=== PATIENT | male | born 1945 | race Hispanic/Latino ===

== ENCOUNTER 2017-09-09 21:50 | Emergency (ER) | payer MEDICARE, OTHER ==
[2017-09-09 23:16] LABS: BASOPHILS % (AUTO) 0.3 % (0.0-5.0); EOSINOPHILS % (AUTO) 1.1 % (0.0-8.0); HEMATOCRIT 36.8 % (42-54); LYMPHOCYTES % (AUTO) 17.6 % (21.0-51.0); MEAN CORPUSCULAR HEMOGLOBIN 33.2 pg (27.0-33.0); MEAN CORPUSCULAR HGB CONC 36.6 g/dL (32.0-36.0); MEAN CORPUSCULAR VOLUME 90.9 fL (79-99); NUCLEATED RED BLOOD CELLS 0.2 % (0.0-0.19); PLATELET COUNT (AUTO) 190 K/uL (130-400); RED BLOOD CELL COUNT(AUTO) 4.05 MIL/uL (4.50-6.20); RED CELL DISTRIBUTION WIDTH 12.9 % (11.0-15.5); WHITE BLOOD COUNT (AUTO) 6.5 K/uL (4.8-10.8)
[2017-09-09 23:26] LABS: CREATININE 1.3 mg/dL (0.5-1.5); POTASSIUM 4.2 mmol/L (3.5-5.1)
[2017-09-09 23:30] LABS: ALBUMIN 3.4 g/dL (3.5-5.0); BILIRUBIN,TOTAL 0.9 mg/dL (0.2-1.0)
[2017-09-10] MEDS ORDERED: CEFTRIAXONE SODIUM 1 GM ONE (00:10)
[2017-09-10] MEDS ORDERED: LIDOCAINE HCL-MPF 1% 2ML VIAL ONE (00:10)
[2017-09-10 00:46] LABS: ERYTHROCYTE SEDIMENTATION RATE 42 MM/HR (0-15)
== END 2017-09-10 01:37 | disposition home or self-care (01) ==
LOC: EDH 21:50
DX: M79.89 Other specified soft tissue disorders (principal); L53.9 Erythematous condition, unspecified; M79.671 Pain in right foot; E11.9 Type 2 diabetes mellitus without complications
CPT/HCPCS: 36415; 73630; 80053; 84550; 85025; 85651; 96372; 99285; J0696; J3490

== ENCOUNTER → 2020-11-16 | Outpatient (CLI) | payer OTHER | END | disposition home or self-care (01) | LOC: RAH 12:50 | PROVIDERS: ATTEND Internal Medicine | DX: N63.20 Unspecified lump in the left breast, unspecified quadrant (principal) | CPT/HCPCS: 76641 ==

== ENCOUNTER → 2022-08-10 | Outpatient (CLI) | payer OTHER | END | disposition home or self-care (01) | LOC: RAH 14:15 | PROVIDERS: ATTEND Internal Medicine | DX: G31.9 Degenerative disease of nervous system, unspecified (principal); I67.82 Cerebral ischemia; H49.01 Third [oculomotor] nerve palsy, right eye; H53.2 Diplopia; R51.9 Headache, unspecified; G23.8 Other specified degenerative diseases of basal ganglia | CPT/HCPCS: 70450 ==

== ENCOUNTER 2023-12-24 17:12 | Emergency (ER) | payer OTHER ==
[~2023-12-24] VITALS: Ht 177.8 cm; Wt 90.7 kg
[2023-12-24 17:59] LABS: ADD UA MICROSCOPIC YES; APPEARANCE,URINE TURBID (CLEAR); BILIRUBIN,URINE NEGATIVE (NEGATIVE); COLOR,URINE YELLOW (YELLOW); GLUCOSE, URINE (UA) 500 mg/dL (NEGATIVE); KETONES,URINE NEGATIVE (NEGATIVE); LEUKOCYTE ESTERASE ,URINE 500 Leu/uL (NEGATIVE); NITRATE,URINE 1+ (NEGATIVE); OCCULT BLOOD,URINE SMALL (NEGATIVE); PH,URINE 8.5 (5.0-8.0); PROTEIN,URINE 600 mg/dL (NEGATIVE); UROBILINOGEN,URINE 0.2 mg/dL (0.2-1.0)
[2023-12-24 18:02] LABS: BACTERIA,URINE MANY /HPF (None Seen); RBC,URINE 26-50 /HPF (0-1); WBC,URINE TNTC /HPF (0-1)
[2023-12-24] MEDS: cefTRIAXone 1G VIAL IM ONE (18:15)
[2023-12-24] MEDS ORDERED: CEPH500B PO (18:17)
[2023-12-24] MEDS: LIDOCAINE HCL 1% 20 ML VIAL ONE (18:37)
[2023-12-24 18:55] VITALS: BP 145/65; PULSE 87; RESP 16; TEMP 97.8; O2SAT 97
== END 2023-12-24 18:45 | disposition home or self-care (01) ==
LOC: EDH 17:12
DX: R33.9 Retention of urine, unspecified (principal); N39.0 Urinary tract infection, site not specified; Z46.6 Encounter for fitting and adjustment of urinary device; E11.9 Type 2 diabetes mellitus without complications; Z79.2 Long term (current) use of antibiotics; Z98.890 Other specified postprocedural states
CPT/HCPCS: 99284; 96372; 87086 ×2; 87186; 81001; 51702; J0696

== ENCOUNTER 2023-12-26 20:12 | Emergency (ER) | payer OTHER ==
[~2023-12-26] VITALS: Ht 177.8 cm; Wt 86.2 kg
[~2023-12-26 20:12] MED LIST: CEPH500B PO
[2023-12-26 21:48] VITALS: TEMP 98.3
[2023-12-26 23:03] VITALS: BP 138/79; PULSE 61; RESP 19; O2SAT 99
== END 2023-12-26 23:45 | disposition home or self-care (01) ==
LOC: EDH 20:12
DX: R33.9 Retention of urine, unspecified (principal); I10 Essential (primary) hypertension; E11.9 Type 2 diabetes mellitus without complications; Z98.890 Other specified postprocedural states; Z46.6 Encounter for fitting and adjustment of urinary device
CPT/HCPCS: 51702

== ENCOUNTER 2024-03-17 22:49 | Observation (INO) | payer OTHER ==
[~2024-03-17] VITALS: Ht 177.8 cm; Wt 86.8 kg
[2024-03-17 23:38] LABS: BASOPHILS # (AUTO) 0.03 K/uL (0.00-0.20); BASOPHILS % (AUTO) 0.4 % (0.0-5.0); EOSINOPHILS # (AUTO) 0.05 K/uL (0.00-0.70); EOSINOPHILS % (AUTO) 0.7 % (0.0-8.0); HEMATOCRIT 32.6 % (42-54); IMMATURE GRANULOCYTE ABSOLUTE 0.05 K/uL (0-1); LYMPHOCYTES # (AUTO) 2.1 K/uL (1.0-4.8); LYMPHOCYTES % (AUTO) 29.2 % (21.0-51.0); MEAN CORPUSCULAR HEMOGLOBIN 33.1 pg (27.0-33.0); MEAN CORPUSCULAR HGB CONC 35.6 g/dL (32.0-36.0); MEAN CORPUSCULAR VOLUME 93.1 fL (79-99); MONOCYTES # (AUTO) 0.6 K/uL (0.1-1.0); MONOCYTES % (AUTO) 7.8 % (3.0-13.0); NEUTROPHILS # (AUTO) 4.4 K/uL (1.8-7.7); NEUTROPHILS % (AUTO) 61.2 % (40.0-77.0); PLATELET COUNT (AUTO) 104 K/uL (130-400); RED CELL DISTRIBUTION WIDTH 14.3 % (11.0-15.5); WHITE BLOOD COUNT (AUTO) 7.2 K/uL (4.8-10.8)
[2024-03-17 23:56] LABS: CREATININE 1.3 mg/dL (0.5-1.3); POTASSIUM 3.4 mmol/L (3.5-5.1)
[2024-03-18] VITALS (8 sets, daily range): BP systolic 98–120; BP diastolic 57–69; PULSE 66–80; RESP 18–20; TEMP 97–97.9; O2SAT 93–98
[2024-03-18 00:09] LABS: B-TYPE NATRIURETIC PEPTIDE 23 pg/mL (0-100)
--- NOTE | 2024-03-18 00:28 | HMCIMG ---
CT HEAD/BRAIN W/O CONTRAST HISTORY: Dizziness COMPARISON: None TECHNIQUE: Multiple sequential axial images of the head were obtained from the base of the skull through vertex. Patient was not given contrast through intravenous route. FINDINGS: The ventricles and extraventricular CSF spaces are dilated consistent with cerebral atrophy. Nonspecific white matter changes seen. Post right craniotomy changes are seen. There is an arachnoid cyst with encephalomalacia changes in the right middle cranial fossa. There is no midline shift, mass effect or herniation. No acute intracranial bleed is seen. Visualized portion of the paranasal sinuses are grossly within normal limits. IMPRESSION: 1. No acute intracranial bleed is seen. 2. Atrophy with white matter changes. CT was performed with one or more following dose reduction techniques: automated exposure control, adjustment of the mA and kv according to patient's size, or use of a iterative reconstruction technique.
--- NOTE | 2024-03-18 01:52 | ERN ---
General Chief Complaint: Hyperglycemia Stated Complaint: HYPERGLYCEMIA, CHEST PRESSURE Time Seen by MD: 23:02 Time Seen by Midlevel: 23:02 Source: patient, family ( and daughter) History of Present Illness Initial Comments Patient is a 78-year-old male with a past medical history of type 2 diabetes and brain tumor who presents to the ER after an episode of hyperglycemia. According to daughter at bedside patient was at home when he developed some chest pressure and a feeling of generalized weakness. His sugar was checked and it was over 380. He was administered his insulin and they reported to the ER for further evaluation. On arrival, at bedside states patient has been having episodes where he was walking and becomes very weak to the point where he falls. This has been ongoing for the last month. They do report history of a brain tumor that was diagnosed earlier this year. A resection of the tumor was performed in [place] several months ago and patient was started on chemotherapy. Allergies: Coded Allergies: No Known Drug Allergies (Unverified Allergy, Unknown, 12/24/23) Home Meds Active Scripts Cephalexin Monohydrate (Keflex) 500 Mg Cap, 500 MG PO QID for 7 Days, #28 CAP Prov:ALOK JUÁREZ 12/24/23 Past Medical History Past Medical History: Diabetes-Type II Past Surgical History: Other Surgical History Other: TUMOR REMOVAL IN BRAIN ROS Dictation CONSTITUTIONAL: Negative except for HPI HEAD/FACE: Negative except for HPI EENT: Negative except for HPI RESPIRATORY: Negative except for HPI GASTROINTESTINAL/ABDOMINAL: Negative except for HPI GENITOURINARY: Negative except for HPI MUSCULOSKELETAL: Negative except for HPI INTEGUMENTARY: Negative except for HPI NEUROLOGICAL/PSYCH: Negative except for HPI HEMATOLOGIC/LYMPHATIC: Negative except for HPI All Systems Negative, Except as noted above. 13 point review of systems assessed and all negative except for above. Physical Exam Physical Exam Dictation Vital Signs reviewed General Appearance: Alert, oriented x 3, no acute distress, well developed, nourished. Head and Face: non-traumatic. Eyes: PERRL, pink conjunctivas, eyelid no trauma, anterior chamber with arcus senilis. Ears: Pinnas intact and no signs of trauma or erythema ear canals clear and no discharge TM no erythema Nose: No discharge, no bleeding. Oropharynx: Mouth normal, tongue pink, pharynx clear,no erythema, tonsils no exudates, no abscesses noted, mucous membrane moist Neck: Supple, non-tender, no thyromegaly, no masses, no JVD, no bruits Breast:Deferred Chest:No tenderness, no crepitus, no paradoxical movement, no retractions Lungs:Clear, well-ventilated, symmetric, no rales, no wheezing, no rhonchi, no stridor, good breath sounds bilaterally Heart: Regular rate, regular rhythm, no murmur, no gallops Vascular: no peripheral edema, Abdomen: Soft, positive bowel sounds, nondistended, no guarding, nontender, no rebound, no masses no hepatomegaly, no splenomegaly, no Edmonds's sign, no hernias. Rectal: Deferred Genital: Deferred Neurological: Normal speech, motor function intact, sensory function intact Musculoskeletal: Neck nontender, full range of motion, back nontender, full range of motion, Extremities: nontender, full range of motion Skin: Color pink, dry, no turgor, no rash, no lacerations, no abrasions, no contusions. Lymphatic: Deferred Results Laboratory and Microbiology Lab and Micro Result Laboratory Tests Test 03/17/24 23:30 White Blood Count 7.2 K/uL (4.8-10.8) Red Blood Count 3.50 MIL/uL (4.50-6.20) L Hemoglobin 11.6 g/dL (14.0-18.0) L Hematocrit 32.6 % (42-54) L Mean Corpuscular Volume 93.1 fL (79-99) Mean Corpuscular Hemoglobin 33.1 pg (27.0-33.0) H Mean Corpuscular Hemoglobin Concent 35.6 g/dL (32.0-36.0) Red Cell Distribution Width 14.3 % (11.0-15.5) Platelet Count 104 K/uL (130-400) L Mean Platelet Volume 9.8 fL (7.5-10.5) Immature Granulocyte % (Auto) 0.7 % (0-1) Neutrophils (%) (Auto) 61.2 % (40.0-77.0) Lymphocytes (%) (Auto) 29.2 % (21.0-51.0) Monocytes (%) (Auto) 7.8 % (3.0-13.0) Eosinophils (%) (Auto) 0.7 % (0.0-8.0) Basophils (%) (Auto) 0.4 % (0.0-5.0) Neutrophils # (Auto) 4.4 K/uL (1.8-7.7) Lymphocytes # (Auto) 2.1 K/uL (1.0-4.8) Monocytes # (Auto) 0.6 K/uL (0.1-1.0) Eosinophils # (Auto) 0.05 K/uL (0.00-0.70) Basophils # (Auto) 0.03 K/uL (0.00-0.20) Absolute Immature Granulocyte (auto 0.05 K/uL (0-1) Nucleated Red Blood Cells 0.0 % (0.0-0.19) Sodium Level 134 mmol/L (136-145) L Potassium Level 3.4 mmol/L (3.5-5.1) L Chloride Level 102 mmol/L (101-111) Carbon Dioxide Level 28 mmol/L (21-32) Blood Urea Nitrogen 33 mg/dL (7-18) H Creatinine 1.3 mg/dL (0.5-1.3) Glomerular Filtration Rate Calc 57 mL/min (>90) Random Glucose 93 mg/dL (70-105) Whole Blood Ketones Quantitative 0.1 mmol/L (0.0-0.6) Lactic Acid Level 2.2 mmol/L (0.8-2.5) Total Calcium 8.9 mg/dL (8.5-10.1) Total Creatine Kinase 13 U/L (21-232) #L Troponin I High Sensitivity 9 ng/L (4-75) B-Type Natriuretic Peptide 23 pg/mL (0-100) Labs Reviewed?: Yes MDM MDM: Differential diagnosis: Electrolyte abnormality, dehydration, intracranial bleed Rationale: Tests considered and ordered secondary to shared decision making include: Previous outside records reviewed: Old ER visits. Risk of complication and/or morbidity or mortality of patient management: None Medications-Per medication reconciliation Need for hospitalization: Patient does meet criteria for hospitalization. Need for emergency major/minor surgery: No There are no social concerns with this patient. Prescription drug management Prescriptions will include symptomatic care Patient's prior external medical records from other ER visits were reviewed by me as indicated. Prior testing and results from previous visits were reviewed. Prior tests were taken into account with medical decision making and resource utilization, independent historian/historians were used to obtain complete medical history. I independently interpreted the test that were performed, results were reviewed by me and considered findings on radiology if ordered. Medical management and examination interpretation discussions were had by me with other qualified healthcare professionals as indicated for the patient's care. ED Course Orders Procedure Category Date Status Time 12 Lead Ekg Tracing- EKG 03/17/24 Logged Technical 23:04 B-Type Natriuretic LAB 03/17/24 Complete Peptide 23:04 Basic Metabolic Panel LAB 03/17/24 Complete 23:04 Cbc With Differential LAB 03/17/24 Complete 23:04 Creatine Kinase, Total LAB 03/17/24 Complete 23:04 Lactic Acid LAB 03/17/24 Complete 23:04 Ketone Blood LAB 03/17/24 Complete Quantitative 23:04 Urinalysis Profile LAB 03/17/24 Logged 23:04 Troponin I High LAB 03/17/24 Complete Sensitivity 23:04 Chest 1vw RAD 03/17/24 Taken 23:04 Ct Head/Brain W/O CT 03/17/24 Resulted Contrast 23:28 Us Carotid Duplex US 03/18/24 Logged 02:17 D-Dimer LAB 03/18/24 In Process 02:17 Vital Signs Every 4 CPOE 03/18/24 Transmitted Hours 02:18 Activity: Bed Rest CPOE 03/18/24 Transmitted 02:18 Seizure Precautions CPOE 03/18/24 Transmitted 02:18 Nothing By Mouth DIET 03/18/24 Transmitted Breakfast O2 Order RT 03/18/24 Transmitted 02:18 Albuterol 0.083% PHA 03/18/24 In Process 2.5mg/3ml (Proventil 02:30 Cbc With Differential LAB 03/19/24 Verified 04:00 Basic Metabolic Panel LAB 03/19/24 Verified 04:00 Magnesium LAB 03/19/24 Verified 04:00 Phosphorus LAB 03/19/24 Verified 04:00 Acetaminophen 325 Tab PHA 03/18/24 In Process (Tylenol 325mg Tab 02:30 Acetaminophen 650mg PHA 03/18/24 In Process Supp (Tylenol 650mg 02:30 Lactulose 20 Gm/30 Ml PHA 03/18/24 In Process Udcup (Constulose 02:30 Ondansetron 4mg Inj PHA 03/18/24 In Process (Zofran 4mg Inj) 02:30 Clonidine Hcl 0.1 Mg PHA 03/18/24 In Process Tablet (Catapres 0. 02:30 Hydralazine 20mg Inj PHA 03/18/24 In Process (Apresoline 20mg In 02:30 Labetalol 20mg Syg PHA 03/18/24 In Process (Trandate 20mg Syg) 02:30 Apply Scds CPOE 03/18/24 Transmitted 02:18 Turn Patient Q2hrs CPOE 03/18/24 Transmitted 02:18 Elevate Hob At 30 CPOE 03/18/24 Transmitted Degrees 02:18 Admit Orders ADM 03/18/24 Transmitted 02:18 Condition: CPOE 03/18/24 Transmitted 02:18 Telemetry Monitoring CPOE 03/18/24 Transmitted 02:18 Initiate NIKKO 03/18/24 In Process Hyperglycemia Protoco 02:18 Thyroid Stimulating LAB 03/18/24 Logged Hormone 04:00 Lipid Panel LAB 03/18/24 Logged 04:00 Hemoglobin A1c LAB 03/18/24 Logged 04:00 Echo 2-D Complete ECHO 03/18/24 Logged 06:00 Pt And Ptt LAB 03/18/24 Logged 04:00 Pt Eval And Treat PT 03/18/24 Transmitted 02:18 Current Medications Medications (Trade) Dose Ordered Sig/Heidy Route PRN Reason Start Time Stop Time Status Last Admin Dose Admin Acetaminophen (TYLenol 325MG TAB) 650 mg Q6H PRN PO FEVER/MILD PAIN LEVEL 1-3 03/18/24 02:30 04/17/24 02:29 Acetaminophen (TYLenol 650MG SUPPOSITORY) 650 mg Q6H PRN RC FEVER / MILD PAIN 1-3 IF NPO 03/18/24 02:30 04/17/24 02:29 Albuterol Sulfate (Proventil 0.083% 2.5mg/3ml) 2.5 mg [id number] PRN IH SHORTNESS OF BREATH 03/18/24 02:30 04/17/24 02:29 Clonidine HCl (CATApres 0.1 mg TAB) 0.1 mg Q6H PRN PO IF SBP GREATER THAN 160 03/18/24 02:30 04/17/24 02:29 Hydralazine HCl (APRESOLine 20MG INJ) 10 mg Q6H PRN IV SBP GREATER THAN 160 03/18/24 02:30 04/17/24 02:29 Labetalol HCl (TRANdate 20MG SYG) 10 mg Q2H PRN IV SBP GREATER THAN 160 03/18/24 02:30 04/17/24 02:29 Lactulose (Constulose 20gm/ 30ml Udcup) 20 gm Q6H PRN PO CONSTIPATION 03/18/24 02:30 04/17/24 02:29 Ondansetron HCl (zoFRAN 4MG INJ) 4 mg Q6H PRN IVP NAUSEA/VOMITING 03/18/24 02:30 04/17/24 02:29 Vital Signs Date Time Temp Pulse Resp B/P (MAP) Pulse Ox O2 Delivery O2 Flow Rate FiO2 03/18/24 01:37 97.9 70 20 106/70 100 Room Air* 0 21 03/17/24 23:45 97.9 75 20 104/67 100 Room Air* 0 21 03/17/24 22:51 97.2 85 16 94/67 99 Room Air 0 DX & DISP Disposition: Inpatient Decision to Admit Date: Mar 18, 2024 Departure Impression: Primary Impression: History of brain tumor Additional Impressions: Frequent falls, Chronic anemia, Arachnoid cyst Condition: Stable Referrals: DAPHNE GREEN MD (PCP) I have reviewed the case, and I agree with, Diagnosis and Plan I performed the substantive portion of the visit. I have reviewed and personally made and approve the management plan that is documented in the note by myself or the NIDIA. I acknowledge for responsibility for the patient's management plan. ALOK JUÁREZ Mar 18, 2024 01:52
[2024-03-18] MEDS ORDERED: ALBUTEROL 0.083% 2.5 MG/3 ML INH IH PRN (02:30)
[2024-03-18] MEDS ORDERED: cloNIDine HCL 0.1 MG TABLET PO PRN (02:30)
[2024-03-18] MEDS ORDERED: LACTULOSE 20 GM/30 ML UDCUP PO PRN (02:30)
[2024-03-18] MEDS ORDERED: LAbetaLOL 20MG SYG IV PRN (02:30)
[2024-03-18] MEDS ORDERED: acetaMINOPHEN 650 MG SUPPOSITORY RC PRN (02:30)
[2024-03-18] MEDS ORDERED: hydrALAZine 20MG/ML VIAL IV PRN (02:30)
[2024-03-18] MEDS ORDERED: ondanSETRON 4MG INJ IVP PRN (02:30)
[2024-03-18] MEDS ORDERED: acetaMINOPHEN 325 MG TAB PO PRN (02:30)
--- NOTE | 2024-03-18 03:27 | NUR ---
NO HOME MEDS NOTED AT BEDSIDE, FAMILY MADE AWARE TO BRING IN FROM HOME
[2024-03-18 03:47] LABS: APPEARANCE,URINE CLEAR (CLEAR); BILIRUBIN,URINE NEGATIVE (NEGATIVE); COLOR,URINE LIGHT-YELLOW (YELLOW); GLUCOSE, URINE (UA) NEGATIVE (NEGATIVE); KETONES,URINE NEGATIVE (NEGATIVE); LEUKOCYTE ESTERASE ,URINE NEGATIVE Leu/uL (NEGATIVE); NITRATE,URINE NEGATIVE (NEGATIVE); OCCULT BLOOD,URINE NEGATIVE (NEGATIVE); PH,URINE 5.5 (5.0-8.0); PROTEIN,URINE NEGATIVE (NEGATIVE); UROBILINOGEN,URINE 0.2 mg/dL (0.2-1.0)
[2024-03-18 03:49] LABS: ADD UA MICROSCOPIC NO
--- NOTE | 2024-03-18 06:24 | NUR ---
RN GETTING CONSENT AND IV, WILL BRING DOWN WHEN READY
[2024-03-18 07:10] LABS: THYROID STIMULATING HORMONE 3.32 uIU/mL (0.36-3.74)
[2024-03-18 07:33] LABS: INR 1.17 (0.85-1.15); PROTHROMBIN TIME 12.5 SEC (9.6-11.6)
[2024-03-18 07:34] LABS: PARTIAL THROMBOPLASTIN TIME 25.4 SEC (26.3-35.5)
--- NOTE | 2024-03-18 07:38 | EKG ---
[facility] Test Date: 2024-03-17 Test Time: 23:28:02 Pat Name: RANDI CAMPBELL Department: [facility] Patient ID: [id number] Room: 304 1 Gender: M Call Out Operator: [id number] [phone] [id number] Requested By: ALOK JUÁREZ Order Number: [id number] Reading MD: Radha Gee Measurements Intervals Sidney Rate: 78 P: -13 CT: 170 QRS: -10 QRSD: 94 T: 61 QT: 384 QTc: 437 Interpretive Statements Sinus rhythm Inferior infarct, old No previous ECG available for comparison Electronically Signed On 03-18-2024 10:50:58 SOFTWARE QUALITY ENGINEER by Radha Gee Please click the below link to view image of tracing.
--- NOTE | 2024-03-18 08:42 | HMCIMG ---
US CAROTID DUPLEX REASON: dizziness, gait instability TECHNIQUE: Exam was performed using spectral analysis and color flow imaging. FINDINGS: Color flow Doppler ultrasound shows normal-appearing bifurcations. There is no anatomic evidence of significant focal narrowing. Flow velocities and velocity ratios appear normal throughout. There is antegrade flow in both vertebral arteries. RIGHT CAROTID: CCA: 65 cm/sec ICA: 72 cm/sec Ratio: ICA/CCA: 1.1 ECA: 42 cm/sec Vertebral artery: 44 cm/sec LEFT CAROTID: CCA: 69 cm/sec ICA: 53 cm/sec Ratio: ICA/CCA: 0.8 ECA: 44 cm/sec Vertebral artery: 40 cm/sec IMPRESSION: Normal bilateral carotid Doppler ultrasound.
--- NOTE | 2024-03-18 08:48 | NUR ---
DCP:HOME Sw met with pt's Deana Ren [phone]. states that for the last week, pt has required stand by assistance with his ADLS, ambulating with walker. reports "his leg give out on him while he is walking". Pt has walker with seat, no HH or HD services. PCP Ketty Quiroz and uses [facility] for rx. Pr , pt to go home at [facility], not SNF. Addendum: 03/18/24 at 0900 by STEVE GUADALUPE Amended: Links added.
--- NOTE | 2024-03-18 09:00 | NUR ---
HOME MEDICATIONS PATIENT'S HAD PILL BOX AT BEDSIDE WITH PATIENT'S HOME MEDICATIONS. PER UNAWARE OF NAMES, DOSAGES OR INDICATIONS ON MEDICATIONS AND STATED PILL BOXES AT HOME. PROVIDED WITH PATIENT'S PCP CONTACT INFO FOR FURTHER ASSISTANCE. CONTACTED [facility] FOR HOME MEDICATION LIST. SPOKE WITH NURSE, MAAME AND PROVIDED WITH FAX NUMBER FOR LIST TO BE FAXED. PENDING FAX.
[2024-03-18] MEDS ORDERED: IOHEXOL-350 75 ML VIAL IV ONE (09:33)
--- NOTE | 2024-03-18 10:45 | NUR ---
CT CHEST DR. GONSALEZ CALLED IN REGARDING RESULTS FOR CT CHEST (PE PROTOCOL). PER , RESULTS FOLLOWS Multiple bilateral pulmonary emboli in the right middle and lower lobes as well as the left lower lobe and Dilated right ventricle compared to the left consistent with a component of right heart strain. RESULTS REPORTED TO SCHUYLER MARTINEZ. PER MICHELLE PATIENT WILL BE STARTED ON ELIQUIS 10MG X 5 DAYS THEN ELIQUIS 5MG PO QD. ORDERS PLACED BY SCHUYLER MARTINEZ AND CARRIED OUT. NO FURTHER ORDERS GIVEN AT THIS TIME. WILL CONTINUE TO MONITOR.
--- NOTE | 2024-03-18 10:46 | HMCIMG ---
CT CHEST PE PROTOCOL O CONT REASON: P.E. TECHNIQUE: Thin axial images through the chest were obtained during bolus intravenous administration of 75 ml of Omnipaque 350. Sagittal and coronal reconstruction images were performed. FINDINGS: There are multiple bilateral pulmonary emboli more pronounced on the right. These are present in the right middle and lower lobe as well as the left lower lobe. The right ventricle appears dilated compared to the left consistent with a component of right heart strain. There are no focal masses or infiltrates. There are no pleural effusions. There is no evidence of pulmonary infarct. There is extensive coronary artery calcification. There is no hilar or mediastinal lymphadenopathy. Chest wall structures appear normal. There are stones in the gallbladder. There is mild splenomegaly, there may be some varices. IMPRESSION: 1. Multiple bilateral pulmonary emboli in the right middle and lower lobes as well as the left lower lobe. 2. Dilated right ventricle compared to the left consistent with a component of right heart strain. 3. Cholelithiasis. 4. Splenomegaly with probable varices. 5. These findings discussed with patient's care team at the time of dictation. CT was performed with one or more following dose reduction techniques: automated exposure control, adjustment of the mA and kv according to patient's size, or use of a iterative reconstruction technique.
[2024-03-18] MEDS: APIXaban 5 MG TABLET PO SCH (11:10)
--- NOTE | 2024-03-18 12:00 | NUR ---
Order received and spoke to Haja, patient's nurse. As per haja, CT scan + mutiple pulmonary emboli. PT eval on hold.
--- NOTE | 2024-03-18 12:03 | HMCIMG ---
CHEST 1VW REASON: SOB COMPARISON: None. FINDINGS: Single view of the chest was obtained. Lungs are clear. Heart size is normal. There is no pulmonary vascular congestion. Mediastinum and bony thorax appear unremarkable. IMPRESSION: 1. Normal single view chest x-ray.
--- NOTE | 2024-03-18 12:48 | HP ---
[facility] HISTORY & PHYSICAL Date Patient Seen: Mar 18, 2024 Time of Visit: 12:47 Supervising Physician: Dr. Amaro Primary Care Physician: Dr. Mariela Quiroz Outpatient Specialists: [ ] Inpatient Consults: [ ] PROBLEM LIST: Hyperglycemia the presence of poorly controlled diabetes homeless type 2 Multiple falls in the last month Gait instability History of brain tumor s/p resection and chemo at [place] Diabetes Mellitus HPI: Patient is a 78-year-old male with a past medical history significant for diabetes mellitus, and a history of brain tumor with resection and chemotherapy at [place]. Patient was admitted for episode of hyperglycemia with blood sugars at the 380 range as well as weakness with multiple falls over the past month. is at bedside, she states that his sugars have periodically been over the 500 range in the past. At the time of evaluation patient's blood sugars were 102 on the last check, well-controlled at this time. Regarding to syncope workup for his falls and stability, carotid ultrasound and head CT has been returned normal at this time. During the evaluation the results for CTA were returned positive for bilateral pulmonary embolism. Patient was started on therapeutic dose Eliquis which was later converted to therapeutic dose Lovenox at 87 mg subcutaneously every 12 hours. At the time of visit patient is still pending echocardiogram and chest x-ray, due to the disruption of the falls from the we are also ordering a brain MRI in order to rule out cerebellar stroke. Patient was resting comfortably at this time, laboratory studies appear unremarkable today. Patient's respiratory status is unchanged, currently on room air with no respiratory distress. We will continue to monitor this patient closely, prognosis remains guarded at this time. PAST MEDICAL HX: see above PAST SURGICAL HX: noncontributory SOCIAL HISTORY: No tobacco, ETOH, or illicit drug use Coded Allergies: No Known Drug Allergies (Unverified Allergy, Unknown, 12/24/23) REVIEW OF SYSTEMS: 12 point ROS reviewed with patient. Pertinent positives mentioned above. Otherwise negative. PHYSICAL EXAM: GENERAL: alert, weak, awake oriented x 3 HEENT: EOMI, Sclera non icteric, moist mucosa NECK: Supple, no JVD, trachea midline LUNGS: Clear breath sounds bilaterally. No wheezes HEART: Regular rate and rhythm. Normal S1 and S2, without murmurs ABD: Abdomen soft, nontender. Bowel sounds present EXT: No clubbing cyanosis or edema NEURO: Alert and oriented to person, follows commands Vital Signs (last 8hr) Date Time Temp Pulse Resp B/P (MAP) Pulse Ox O2 Delivery O2 Flow Rate FiO2 03/18/24 08:00 97.2 68 18 120/69 94 Room Air 21 03/18/24 04:50 67 18 N/A Room Air 0.0 21 LABS: Hematology Labs: Test 03/17/24 23:30 Range/Units White Blood Count 7.2 4.8-10.8 K/uL Red Blood Count 3.50 L 4.50-6.20 MIL/uL Hemoglobin 11.6 L 14.0-18.0 g/dL Hematocrit 32.6 L 42-54 % Mean Corpuscular Volume 93.1 79-99 fL Mean Corpuscular Hemoglobin 33.1 H 27.0-33.0 pg Mean Corpuscular Hemoglobin Concent 35.6 32.0-36.0 g/dL Red Cell Distribution Width 14.3 11.0-15.5 % Platelet Count 104 L 130-400 K/uL Mean Platelet Volume 9.8 7.5-10.5 fL Immature Granulocyte % (Auto) 0.7 0-1 % Neutrophils (%) (Auto) 61.2 40.0-77.0 % Lymphocytes (%) (Auto) 29.2 21.0-51.0 % Monocytes (%) (Auto) 7.8 3.0-13.0 % Eosinophils (%) (Auto) 0.7 0.0-8.0 % Basophils (%) (Auto) 0.4 0.0-5.0 % Neutrophils # (Auto) 4.4 1.8-7.7 K/uL Lymphocytes # (Auto) 2.1 1.0-4.8 K/uL Monocytes # (Auto) 0.6 0.1-1.0 K/uL Eosinophils # (Auto) 0.05 0.00-0.70 K/uL Basophils # (Auto) 0.03 0.00-0.20 K/uL Absolute Immature Granulocyte (auto 0.05 0-1 K/uL Nucleated Red Blood Cells 0.0 0.0-0.19 % Chemistry Labs: Test 03/18/24 11:19 03/18/24 06:38 03/17/24 23:30 Range/Units Whole Blood Glucose 104 70-110 MG/DL Hemoglobin A1c 6.0 4.0-6.0 % Estimated Average Glucose (eAG) 126 70-126 mg/dL Lactic Acid Level 1.8 0.8-2.5 mmol/L Triglycerides Level 60 30-200 mg/dL Cholesterol Level 61 <200 mg/dL LDL Cholesterol 29 0-99 mg/dL HDL Cholesterol 31 29-71 mg/dL Thyroid Stimulating Hormone (TSH) 3.32 0.36-3.74 uIU/mL Sodium Level 134 L 136-145 mmol/L Potassium Level 3.4 L 3.5-5.1 mmol/L Chloride Level 102 101-111 mmol/L Carbon Dioxide Level 28 21-32 mmol/L Blood Urea Nitrogen 33 H 7-18 mg/dL Creatinine 1.3 0.5-1.3 mg/dL Glomerular Filtration Rate Calc 57 >90 mL/min Random Glucose 93 70-105 mg/dL Whole Blood Ketones Quantitative 0.1 0.0-0.6 mmol/L Total Calcium 8.9 8.5-10.1 mg/dL Total Creatine Kinase 13 #L 21-232 U/L Troponin I High Sensitivity 9 4-75 ng/L B-Type Natriuretic Peptide 23 0-100 pg/mL Coagulation Labs: Test 03/18/24 06:38 03/17/24 23:30 Range/Units Prothrombin Time 12.5 H 9.6-11.6 SEC Prothromb Time International Ratio 1.17 H 0.85-1.15 Activated Partial Thromboplast Time 25.4 L 26.3-35.5 SEC D-Dimer Quantitative (PE/DVT) 2983 *H 0-500 ng/mL DIAGNOSTICS / RADIOLOGY RESULTS: [ ] PLAN NEURO: Minimize central acting medications as possible. Maintain fall precautions, adequate lighting during the day PULMONARY: Supplemental 02 as needed. Maintain aspiration precautions at all times CARDIOVASCULAR: Follow hemodynamics. Vital signs per facility protocol GI & NUTRITION: Continue with nutritional support. Continue stool softeners and laxatives as needed. KIDNEYS & ELECTROLYTES: Strict monitoring of intake, output and overall fluid balance. Avoid nephrotoxic medications to the extent possible. Medications to be dosed according to renal function. Monitor electrolytes and replace as needed ENDOCRINE: Maintain blood glucose between 100-180 at all times. Hypoglycemia protocol in place INFECTIOUS DISEASE: Trend temperature, WBC and procalcitonin level Follow cultures, deescalate antibiotics as soon as possible. Panculture if new onset fever ONCOLOGY/HEMATOLOGY/COAGULATION: Monitor for s/s of bleeding Monitor hemoglobin, coagulation studies as needed SKIN: Pressure ulcer prevention per facility protocol Specialty mattress ORTHO/REHAB: Continue PT/OT Prophylaxis: Continue GI and DVT prophylaxis Code Status: Full Resuscitation Disposition: TBD Other: Total patient care time exceeds 35 minutes excluding all procedures. MICHELEL SAENZ Mar 18, 2024 12:48
--- NOTE | 2024-03-18 14:01 | HMCIMG ---
MR BRAIN WWO CON REASON: R/O STROKE COMPARISON: CT brain 03/18/2024 TECHNIQUE: Routine cerebral imaging protocol was performed. Images are also obtained pre and post gadolinium contrast infusion. CONTRAST: 15 cc MultiHance 529 IV. FINDINGS: There are surgical changes in the right temporal lobe and right temporal calvarium. There is focal encephalomalacia. There is no evidence of residual mass and there is no mass effect. There is minimal enhancement along the resection margin consistent with granulation tissue There are periventricular white matter changes of small vessel disease which are mild in degree. Brain parenchyma appears otherwise unremarkable, there are no other focal parenchymal abnormalities. There is no other abnormal contrast enhancement. Ventricles and sulci appear generous consistent with moderate involutional change. Posterior fossa and brainstem structures appear unremarkable. There is no evidence of intracranial hemorrhage. Diffusion-weighted images are negative for an acute ischemic process. There are no abnormal fluid collections. Extracranial soft tissues appear normal as well. IMPRESSION: 1. Postop changes in the right temporal lobe. 2. No evidence of residual mass or abnormal contrast enhancement. 3. Moderate involutional changes with generous ventricles and sulci and with mild periventricular white matter changes.
[2024-03-18] MEDS ORDERED: GADOTERATE MEGLUMINE 10 MMOL/20 ML VIAL IV ONE (17:22)
--- NOTE | 2024-03-18 18:00 | HMCSR ---
APPROVED REPORT EXAM: Two-dimensional and M-mode echocardiogram with Doppler and color Doppler. INDICATION ICD: CHEST PRESSURE/R/O CVA 2D Dimensions RVDd3.1 cmLVEF(%)51.8 (>50%)LVED Vol(simp.)45.0 mL IVSd1.3 (0.7-1.1cm)FS(%)26 %LVES Vol(simp.)19.0 mL LVDd4.2 (3.8-5.6cm)LA (2D)3.8 (1.6-4.0cm)LVEF(%, simp.)58 % PWd0.8 (0.7-1.1cm)Ao Root(2D)3.4 (2.0-3.7cm)LA ESV INDEX (4CH)16.20 mL/m2 IVSs1.4 cmLVOT diam2.4 (1.8-2.4cm) LVDs3.1 (2.5-4.0cm) PWs1.1 cm Deformation Strain Apical 4-21.0 % Apical 2-18.0 % Apical 3-19.0 % Global Strain-19.0 % M-Mode Dimensions LA (MM)4.2 (1.6-4.0cm) Ao Root(MM)3.6 (2.0-3.7cm) Aortic Valve AoV VTI0.2 mAo Mean GR4.0 mmHgLVOT VTI0.16 m LUCILLE (VMAX)3.1 cm2AVA (VTI) 3.1 cm2 Mitral Valve MV E Vmax50.3 cm/sDECEL Xhct373 ms MV A Vmax76.0 cm/sP 1/2 T70 ms E/A ratio0.7MVA (PHT)3.1 cm2 TDI E/E' Fcvdgg53.2E/E' Lateral7.3 Medial E' Peak V3.10 cm/sLateral E' Peak V6.90 cm/s Pulmonary Valve PV VTI0.11 mPV Mean GR1 mmHg Left Ventricle The left ventricle is normal size. GLS -19%. Mild concentric left ventricular hypertrophy. LVEF is 60 -65%. The left ventricular diastolic function is indeterminate. Right Ventricle The right ventricle is normal size. The right ventricular systolic function is normal. Atria The left atrium size is normal. The right atrium size is normal. echogenic mobile mass seen right atr ium Aortic Valve The aortic valve is normal in structure. No aortic regurgitation is present. There is no aortic valvu lar stenosis. Mitral Valve The mitral valve is normal in structure. Mildly calcified posterior leaflet. Mitral valve leaflets op en well. There is no evidence of significant mitral regurgitation. There is no mitral valve stenosis. Tricuspid Valve The tricuspid valve is normal in structure. There is no tricuspid valve regurgitation noted. Pulmonic Valve The pulmonary valve is normal in structure. There is no pulmonic valvular regurgitation. Great Vessels The aortic root is normal in size. The IVC is normal in size and collapses >50% with inspiration. Pericardium There is no pericardial effusion. Other Information Quality : AdequateRhythm : NSR Conclusion LVEF is 60-65%. Mild concentric left ventricular hypertrophy. The left ventricular diastolic function is indeterminate. Mildly calcified posterior mitral valve leaflet.
[2024-03-18] MEDS: INSULIN humuLIN R 100 UNIT/ML 3ML SQ SCH (21:35)
[2024-03-19] VITALS (8 sets, daily range): BP systolic 93–111; BP diastolic 60–69; PULSE 71–79; RESP 17–20; TEMP 97.7–98.3; O2SAT 94–95
[2024-03-19 04:50] LABS: BASOPHILS # (AUTO) 0.01 K/uL (0.00-0.20); BASOPHILS % (AUTO) 0.2 % (0.0-5.0); EOSINOPHILS # (AUTO) 0.04 K/uL (0.00-0.70); EOSINOPHILS % (AUTO) 0.9 % (0.0-8.0); HEMATOCRIT 31.1 % (42-54); IMMATURE GRANULOCYTE ABSOLUTE 0.02 K/uL (0-1); LYMPHOCYTES # (AUTO) 1.3 K/uL (1.0-4.8); LYMPHOCYTES % (AUTO) 27.5 % (21.0-51.0); MEAN CORPUSCULAR HEMOGLOBIN 33.4 pg (27.0-33.0); MEAN CORPUSCULAR HGB CONC 35.7 g/dL (32.0-36.0); MEAN CORPUSCULAR VOLUME 93.7 fL (79-99); MONOCYTES # (AUTO) 0.4 K/uL (0.1-1.0); NEUTROPHILS # (AUTO) 2.9 K/uL (1.8-7.7); PLATELET COUNT (AUTO) 80 K/uL (130-400); RED BLOOD CELL COUNT(AUTO) 3.32 MIL/uL (4.50-6.20); WHITE BLOOD COUNT (AUTO) 4.6 K/uL (4.8-10.8)
[2024-03-19 04:59] LABS: POTASSIUM 3.7 mmol/L (3.5-5.1)
[2024-03-19 05:00] LABS: CREATININE 1.1 mg/dL (0.5-1.3); MAGNESIUM 1.4 mg/dL (1.80-2.40); PHOSPHORUS 2.9 mg/dL (2.5-4.9)
[2024-03-19] MEDS: MAGNESIUM 2GM PREMIX 50ML 50 ML IV PRN (05:17)
[2024-03-19] MEDS ORDERED: ENOXAPARIN SODIUM 100 MG/1 ML SQ SCH (09:00)
--- NOTE | 2024-03-19 13:56 | PN ---
[facility] PROGRESS NOTE Date Patient Seen: Mar 19, 2024 Time of Visit: 13:56 Supervising Physician: [Dr. Amaro] Primary Care Physician: Dr. Mariela Quiroz Outpatient Specialists: [ ] Inpatient Consults: [ ] PROBLEM LIST: Bilateral pulmonary embolus, CTA chest, POA Hyperglycemia the presence of poorly controlled diabetes mellitus type 2 Frequent falls with multiple falls reported in the last month Gait instability History of brain tumor s/p resection and chemo at [facility] Diabetes Mellitus INTERVAL HISTORY: [Patient was admitted for evaluation of chest pressure associated with general body weakness and hyperglycemic episode. Per ED report patient has a history of brain tumor as far s/p resection several months ago. He states he was diagnosed with brain cancer at that time. I spoke to the patient's son on the phone states the patient underwent 21 days of radiation and continue treatment with chemotherapy of which he took his last dose a week ago. Per son, patient is following up with Dr. Gomez and we will continue on a maintenance dose of chemotherapy. The son explained that the patient has been weak with a gait instability and has had multiple falls due to the same. His labs on admission revealed mildly elevated creatinine of 1.3, improved today to 1.1. Low magnesium, currently being replaced and thrombocytopenia. His CT of the head did not reveal any acute findings but did not note an arachnoid cyst. Carotid Doppler was normal. His CT of the chest revealed a bilateral pulmonary embolus with a dilated right ventricle concerning for right heart strain. A subsequent echocardiogram was performed which revealed an EF of 60-65% with otherwise norm al findings, no mentioned of right heart strain, elevated right ventricular pressure or pulmonary hypertension. I reached out to Dr. Gee who read the echocardiogram to confirm the findings. Denies any history of A-fib. MRI of the brain reveals post-op R-temporal lobe changes without evidence of residual mass. Patient continues on full-dose Lovenox for treatment of bilateral PE. We will order physical therapy to evaluate patient's ability to ambulate safely. We will consult case management for SNF eval if appropriate.] REVIEW OF SYSTEMS: 12 point ROS reviewed with patient. Pertinent positives mentioned above. Otherwise negative. PHYSICAL EXAM: GENERAL: alert, weak, awake oriented x 3 HEENT: EOMI, Sclera non icteric, moist mucosa NECK: Supple, no JVD, trachea midline LUNGS: Clear breath sounds bilaterally. No wheezes HEART: Regular rate and rhythm. Normal S1 and S2, without murmurs ABD: Abdomen soft, nontender. Bowel sounds present EXT: No clubbing cyanosis or edema NEURO: Alert and oriented to person, follows commands Vital Signs (last 8hr) Date Time Temp Pulse Resp B/P (MAP) Pulse Ox O2 Delivery O2 Flow Rate FiO2 03/19/24 12:00 98.2 79 18 111/69 96 Room Air 21 03/19/24 08:00 98.2 76 18 93/60 97 Room Air 21 03/19/24 07:07 77 18 N/A Room Air 0.0 21 LABS: Hematology Labs: Test 03/19/24 03:04 Range/Units White Blood Count 4.6 L 4.8-10.8 K/uL Red Blood Count 3.32 L 4.50-6.20 MIL/uL Hemoglobin 11.1 L 14.0-18.0 g/dL Hematocrit 31.1 L 42-54 % Mean Corpuscular Volume 93.7 79-99 fL Mean Corpuscular Hemoglobin 33.4 H 27.0-33.0 pg Mean Corpuscular Hemoglobin Concent 35.7 32.0-36.0 g/dL Red Cell Distribution Width 14.0 11.0-15.5 % Platelet Count 80 L 130-400 K/uL Mean Platelet Volume 10.4 7.5-10.5 fL Immature Granulocyte % (Auto) 0.4 0-1 % Neutrophils (%) (Auto) 63.0 40.0-77.0 % Lymphocytes (%) (Auto) 27.5 21.0-51.0 % Monocytes (%) (Auto) 8.0 3.0-13.0 % Eosinophils (%) (Auto) 0.9 0.0-8.0 % Basophils (%) (Auto) 0.2 0.0-5.0 % Neutrophils # (Auto) 2.9 1.8-7.7 K/uL Lymphocytes # (Auto) 1.3 1.0-4.8 K/uL Monocytes # (Auto) 0.4 0.1-1.0 K/uL Eosinophils # (Auto) 0.04 0.00-0.70 K/uL Basophils # (Auto) 0.01 0.00-0.20 K/uL Absolute Immature Granulocyte (auto 0.02 0-1 K/uL Nucleated Red Blood Cells 0.0 0.0-0.19 % Chemistry Labs: Test 03/19/24 11:48 03/19/24 03:04 03/18/24 06:38 03/17/24 23:30 Range/Units Whole Blood Glucose 262 #H 70-110 MG/DL Sodium Level 142 136-145 mmol/L Potassium Level 3.7 3.5-5.1 mmol/L Chloride Level 106 101-111 mmol/L Carbon Dioxide Level 29 21-32 mmol/L Blood Urea Nitrogen 20 H 7-18 mg/dL Creatinine 1.1 0.5-1.3 mg/dL Glomerular Filtration Rate Calc 70 >90 mL/min Random Glucose 155 H 70-105 mg/dL Total Calcium 8.6 8.5-10.1 mg/dL Phosphorus Level 2.9 2.5-4.9 mg/dL Magnesium Level 1.40 L 1.80-2.40 mg/dL Hemoglobin A1c 6.0 4.0-6.0 % Estimated Average Glucose (eAG) 126 70-126 mg/dL Lactic Acid Level 1.8 0.8-2.5 mmol/L Triglycerides Level 60 30-200 mg/dL Cholesterol Level 61 <200 mg/dL LDL Cholesterol 29 0-99 mg/dL HDL Cholesterol 31 29-71 mg/dL Thyroid Stimulating Hormone (TSH) 3.32 0.36-3.74 uIU/mL Whole Blood Ketones Quantitative 0.1 0.0-0.6 mmol/L Total Creatine Kinase 13 #L 21-232 U/L Troponin I High Sensitivity 9 4-75 ng/L B-Type Natriuretic Peptide 23 0-100 pg/mL Coagulation Labs: Test 03/18/24 06:38 03/17/24 23:30 Range/Units Prothrombin Time 12.5 H 9.6-11.6 SEC Prothromb Time International Ratio 1.17 H 0.85-1.15 Activated Partial Thromboplast Time 25.4 L 26.3-35.5 SEC D-Dimer Quantitative (PE/DVT) 2983 *H 0-500 ng/mL DIAGNOSTICS / RADIOLOGY RESULTS: [MR BRAIN WWO CON REASON: R/O STROKE COMPARISON: CT brain 03/18/2024 TECHNIQUE: Routine cerebral imaging protocol was performed. Images are also obtained pre and post gadolinium contrast infusion. CONTRAST: 15 cc MultiHance 529 IV. FINDINGS: There are surgical changes in the right temporal lobe and right temporal calvarium. There is focal encephalomalacia. There is no evidence of residual mass and there is no mass effect. There is minimal enhancement along the resection margin consistent with granulation tissue There are periventricular white matter changes of small vessel disease which are mild in degree. Brain parenchyma appears otherwise unremarkable, there are no other focal parenchymal abnormalities. There is no other abnormal contrast enhancement. Ventricles and sulci appear generous consistent with moderate involutional change. Posterior fossa and brainstem structures appear unremarkable. There is no evidence of intracranial hemorrhage. Diffusion-weighted images are negative for an acute ischemic process. There are no abnormal fluid collections. Extracranial soft tissues appear normal as well. IMPRESSION: 1. Postop changes in the right temporal lobe. 2. No evidence of residual mass or abnormal contrast enhancement. 3. Moderate involutional changes with generous ventricles and sulci and with mild periventricular white matter changes.] PLAN NEURO: Minimize central acting medications as possible. Maintain fall precautions, adequate lighting during the day PULMONARY: Supplemental 02 as needed. Maintain aspiration precautions at all times CARDIOVASCULAR: Follow hemodynamics. Vital signs per facility protocol GI & NUTRITION: Continue with nutritional support. Continue stool softeners and laxatives as needed. KIDNEYS & ELECTROLYTES: Strict monitoring of intake, output and overall fluid balance. Avoid nephrotoxic medications to the extent possible. Medications to be dosed according to renal function. Monitor electrolytes and replace as needed ENDOCRINE: Maintain blood glucose between 100-180 at all times. Hypoglycemia protocol in place INFECTIOUS DISEASE: Trend temperature, WBC and procalcitonin level Follow cultures, deescalate antibiotics as soon as possible. Panculture if new onset fever ONCOLOGY/HEMATOLOGY/COAGULATION: Monitor for s/s of bleeding Monitor hemoglobin, coagulation studies as needed SKIN: Pressure ulcer prevention per facility protocol Specialty mattress ORTHO/REHAB: Continue PT/OT Prophylaxis: Continue GI and DVT prophylaxis Code Status: Full Resuscitation Disposition: TBD Other: Total patient care time exceeds 35 minutes excluding all procedures. MEGGAN GALICIA Mar 19, 2024 13:56
--- NOTE | 2024-03-19 15:07 | NUR ---
DC PLAN VISITED WITH PATIENT. RECEIVED TRIGGER FOR SNF. OFFERED TO PATIENT. REFUSED SAID HE KNOWS THAT HE IS WEAK AND UNSTABLE BUT STILL WANTS TO GO HOME. CM LOOKED FOR PT NOTE DID NOT SEE NOTE ORDER FROM 03/18 CM WILL F/U WITH PT. AT THIS TIME PLAN IS FOR HOME. Addendum: 03/19/24 at 1509 by MUNA MILLER RN CM Amended: Links added.
--- NOTE | 2024-03-19 18:28 | NUR ---
DC PLAN SPOKE TO PT SAID PATIENT WAS ENDORSED. COULD USE SOME THERAPY AT HOME MAYBE HOME HEALTH BUT DID NOT SEE NEED FOR SNF. Addendum: 03/19/24 at 1834 by MUNA MILLER RN CM Amended: Links added.
[2024-03-19] MEDS: ENOXAPARIN SODIUM 100 MG/1 ML SQ SCH (20:17)
[2024-03-20 01:31] VITALS: BP 116/70; PULSE 76; RESP 18; TEMP 98.5
[2024-03-20 04:29] VITALS: BP 113/70; PULSE 70; RESP 18; TEMP 98.2
[2024-03-20 07:19] VITALS: PULSE 75; RESP 18; O2SAT 96
[2024-03-20 07:49] VITALS: BP 123/72; PULSE 77; RESP 19; TEMP 98
[2024-03-20 08:30] VITALS: O2SAT 96
[2024-03-20 11:44] VITALS: BP 114/65; PULSE 75; RESP 19; TEMP 98
--- NOTE | 2024-03-20 12:03 | NUR ---
SPOKE WITH DR HAMMER REGARDING NEW CONSULT, VERBALIZES UNDERSTANDING, STATES HE WILL BE BY TO SEE PATIENT.
[2024-03-20] MEDS ORDERED: APIX5TAB PO (14:02)
--- NOTE | 2024-03-20 14:03 | DS ---
[facility] DISCHARGE SUMMARY Date Patient Seen: Mar 20, 2024 Time of Visit: 14:02 Supervising Physician: [Dr. Amaro] Primary Care Physician: Dr. Mariela Quiroz Outpatient Specialists: [ ] Inpatient Consults: [ ] PROBLEM LIST: Glioblastoma multiforme, treated s/p radiation and chemo with temodar Bilateral pulmonary embolus, CTA chest, POA Hyperglycemia the presence of poorly controlled diabetes mellitus type 2 Frequent falls with multiple falls reported in the last month Gait instability History of brain tumor s/p resection and chemo at [place] Diabetes Mellitus HOSPITAL COURSE: HPI (per admitting provider) Patient is a 78-year-old male with a past medical history significant for diabetes mellitus, and a history of brain tumor with resection and chemotherapy at [place]. Patient was admitted for episode of hyperglycemia with blood sugars at the 380 range as well as weakness with multiple falls over the past month. is at bedside, she states that his sugars have periodically been over the 500 range in the past. At the time of evaluation patient's blood sugars were 102 on the last check, well-controlled at this time. Regarding to syncope workup for his falls and stability, carotid ultrasound and head CT has been returned normal at this time. During the evaluation the results for CTA were returned positive for bilateral pulmonary embolism. He was initiated on full dosed lovenox and converted to eliquis upon discharge. Patient's respiratory status is unchanged, on room air with no respiratory distress. Labs including CBC and BMP were unremarkable. Given his weakness and multiple falls patient was recommended for SNF to continue physical therapy but declined and preferred to go home. CHRONIC PROBLEMS: continue previous management per PCP unless otherwise indicated GRAPHIC DESIGN PROFESSOR FINDINGS/RECOMMENDATIONS: [ He needs to follow up with Dr. Gomez next week because he needs to be on oral Temodar 5 days a month for a year. I told him to come see me within 1 week at discharge.] DISCHARGE MEDICATIONS: Continue all previous medications. Start eliquis 10mg BID X 7 days then continue Eliquis 5mg BID thereafter. Pt hemodynamically stable and afebrile at time of discharge. PCP notified of patients admission, hospital course and discharge. New Medications: Apixaban (Eliquis) 5 Mg Tablet 1 TAB PO BID for 30 Days, #60 TAB 0 Refills Apixaban (Eliquis) 5 Mg Tablet 10 MG PO BID for 7 Days, #14 TAB PHYSICAL EXAM: GENERAL: alert, weak, awake oriented x 3 HEENT: EOMI, Sclera non icteric, moist mucosa NECK: Supple, no JVD, trachea midline LUNGS: Clear breath sounds bilaterally. No wheezes HEART: Regular rate and rhythm. Normal S1 and S2, without murmurs ABD: Abdomen soft, nontender. Bowel sounds present EXT: No clubbing cyanosis or edema NEURO: Alert and oriented to person, follows commands FOLLOW-UP: F/U with PCP in 2-3 days for reevaluation. Continue eliquis 10 mg BID x 7 days then transition to 5mg daily thereafter. F/U with Dr. Gomez outpatient for continued management of glioblastoma. Patient was recommended to SNF but declined. F/U with PCP to establish home health with physical therapy. RECOMMENDATIONS: See Discharge Instructions This case was seen and discussed with my supervising physician. More than 30 minutes spent on discharge process, including evaluation of the patient, discu ssion with nursing staff, medication reconciliation and follow-up appointments MEGGAN GALICIA Mar 20, 2024 14:03
--- NOTE | 2024-03-20 15:15 | NUR ---
PATIENT HAS BEEN DISCHARGED HOME. BOTH PIVS HAVE BEEN REMOVED. PRESSURE GAUZE AND TAPE APPLIED TO BOTH SITES. PATIENT AND VERBALIZE UNDERSTANDING OF DISCHARGE PAPERWORK. NEW PRESCRIPTIONS HAVE BEEN SENT TO PATIENT'S PREFERRED PHARMACY. TELE MONITOR HAS BEEN REMOVED. PATIENT WHEELED DOWN TO PRIVATE AUTOMOBILE ACCOMPANIED BY .
--- NOTE | 2024-03-20 22:33 | CONS ---
LOCATION: [facility] REFERRING PHYSICIAN: Camilo. REASON FOR CONSULTATION: Glioblastoma multiforme. HISTORY OF PRESENT ILLNESS: This is a 78-year-old man, diabetes, glioblastoma multiforme, who we actually in [place] are treating with multi-radiation, oral chemotherapy with Temodar, finished 12 treatments, about 2 weeks ago was scheduled for repeat MRI and did not come back. He came in here with hyperglycemia, sugars in 380, multiple falls. He was worked up. He has CTA of the chest showed pulmonary embolism. MRI of the brain showed no activity of the brain cancer and we were asked to evaluate this problem. He is back to his normal right now. He recognizes me. He has no complaints. He just wants to go home. PAST MEDICAL HISTORY: Diabetes mellitus, glioblastoma. PAST SURGICAL HISTORY: He has had a craniotomy, radiation, chemo, otherwise per my old records. MEDICATIONS: See intake sheet. ALLERGIES: None known. FAMILY HISTORY: Negative for brain cancer. SOCIAL HISTORY: He is a retired . Does live with his . Does not smoke or drink. REVIEW OF SYSTEMS: CONSTITUTIONAL: Negative for fevers or sweats. HEENT: Negative for blurred vision. CARDIOVASCULAR: Negative for chest pain, palpitation, PND. PULMONARY: Cough. GASTROINTESTINAL: Negative. Bowel sounds present. GENITOURINARY: Negative for hematuria or dysuria. PHYSICAL EXAMINATION: GENERAL: Shows a pleasant man. VITAL SIGNS: Blood pressure 123/72, pulse 77, respirations 19. HEENT: Benign. NECK: Supple. CHEST: Clear. ABDOMEN: Soft. NEUROLOGIC: He is alert and oriented, sitting in the chair. He is feeding himself. He has no focal findings. LABORATORY DATA: MRI of the brain showed postoperative change. CT chest showed multiple pulmonary emboli, glioblastoma palliative chemoradiotherapy, diabetes, noncompliance. PLAN: We will discontinue the Lovenox, switch to Eliquis 10 mg b.i.d. for 5 days and 5 b.i.d. for 6 months. Obviously, we need to get his sugar under control. He needs to follow up with us next week because he needs to be on oral Temodar 5 days a month for a year. I told him to come see me within 1 week at discharge. Thank you for the consult. TID: [id number] RECEIPT: [id number]
== END 2024-03-20 15:25 | disposition home or self-care (01) ==
LOC: EDH 22:49 → EDHIP 03-18 02:18 → 3AH 03-18 03:38
PROVIDERS: ADMIT Internal Medicine Critical Care Medicine; ATTEND Internal Medicine Critical Care Medicine
DX: E11.65 Type 2 diabetes mellitus with hyperglycemia (principal); D64.9 Anemia, unspecified; D69.6 Thrombocytopenia, unspecified; C71.9 Malignant neoplasm of brain, unspecified; I26.99 Other pulmonary embolism without acute cor pulmonale; I51.7 Cardiomegaly; R07.89 Other chest pain; R26.89 Other abnormalities of gait and mobility; R53.1 Weakness; R55 Syncope and collapse; R79.89 Other specified abnormal findings of blood chemistry; D49.6 Neoplasm of unspecified behavior of brain
CPT/HCPCS: 99285; 82550; 84484; 80048 ×2; 83880; 85025 ×2; 83605 ×2; 82010; 71045; 70450; 93005; 83036; 84443; 80061; 85378; 85610; 85730; 82948 ×10; 81003; 36415 ×4; 71270; 93306; 93356; 93880; 70553; 96372; 96374; 83735 ×2; 84100; 97161; 97116 ×2; 97530 ×3; J1815; G0378 ×58; A4600; Q9967; A9575; J3475; J1650

== ENCOUNTER 2024-05-25 13:11 | Emergency (ER) | payer OTHER ==
[~2024-05-25] VITALS: Ht 177.8 cm; Wt 83.0 kg
[~2024-05-25 13:11] MED LIST changes: +APIX5TAB PO; +BUSP5TAB3 PO; -CEPH500B PO; +DEXA0.5T2 PO; +DUTA0.5C37 PO; +FAMO20TA8 PO; +FERS325 PO; +INSU300I SQ; +LEVE500T98 PO; +METF-446 PO; +PRAV40TA3 PO
--- NOTE | 2024-05-25 13:35 | ERN ---
General Stated Complaint: MECHANICAL FALL,MULTIPLE COMPLAINTS Time Seen by MD: 13:12 Source: patient History of Present Illness Initial Comments IN HIS IS A 79-YEAR-OLD GENTLEMAN COMING IN TO BE EVALUATED FOR DEHYDRATION. PER FAMILY MEMBER AND PATIENT HE WAS RECEIVING CHEMOTHERAPY AND FREQUENTLY GETS DEHYDRATED. THEY WERE NOT ABLE TO HYDRATE HIM WITH IV FLUIDS ISSUES WITH THE FINDING AN IV SITE. PATIENT WAS SENT IN BY PCP FOR IV HYDRATION. Allergies: Coded Allergies: No Known Drug Allergies (Unverified Allergy, Unknown, 12/24/23) Home Meds Active Scripts Apixaban (Eliquis) 5 Mg Tablet, 1 TAB PO BID for 30 Days, #60 TAB 0 Refills Prov:MEGGAN GALICIA 03/20/24 Reported Medications Insulin Glargine,Hum.rec.anlog (Arian Solesther) 300 Unit/Ml (1.5 Ml) Insuln.pen, 40 UNIT SQ HS, SYRINGE 05/07/24 Dutasteride (Dutasteride) 0.5 Mg Capsule, 0.5 MG PO DAILY, CAP 05/07/24 Dexamethasone (Dexamethasone) 0.5 Mg Tablet, 4 MG PO DAILY, TAB 05/07/24 Famotidine (Famotidine) 20 Mg Tablet, 20 MG PO HS for 90 Days, TAB 05/07/24 Levetiracetam (Levetiracetam) 500 Mg Tab.er.24h, 500 MG PO BID, TAB 05/07/24 Pravastatin Sodium (Pravastatin Sodium) 40 Mg Tablet, 40 MG PO DAILY, TAB 05/07/24 Ferrous Sulfate (Ferrous Sulfate) 325 Mg (65 Mg Iron) Ectab, 325 MG PO DAILY, TAB.EC 05/07/24 Buspirone HCl (Buspirone HCl) 5 Mg Tablet, 5 MG PO BID, TAB 05/07/24 Metformin HCl (Metformin HCl) 1,000 Mg Tablet, 1000 MG PO BID, TAB 05/07/24 Past Medical History Past Medical History: Cancer, Diabetes-Type II, Hypertension Medical History Other: HX OF BRAIN CA Past Surgical History: Other Surgical History Other: TUMOR REMOVAL IN BRAIN Family History Family History: Negative Social History Social History: Negative ROS Dictation CONSTITUTIONAL: NO CHILLS, NO FEVER, WEAKNESS, NO DIAPHORESIS, NO MALAISE. HEAD/FACE: NO SIGNS OF TRAUMA. EENT: NO EYE PAIN, NO BLURRED VISION, NO TEARING, NO DOUBLE VISION, NO EAR PAIN, NO EAR DISCHARGE, NO NOSE PAIN, NO NASAL CONGESTION, NO THROAT PAIN, NO THROAT SWELLING, NO MOUTH PAIN. RESPIRATORY: NO COUGH, NO ORTHOPNEA, NO SOB, NO STRIDOR, NO WHEEZING. CARDIOVASCULAR: NO CHEST PAIN, NO EDEMA, NO PALPITATIONS, NO SYNCOPE. GASTROINTESTINAL/ABDOMINAL: NO ABDOMINAL PAIN, NO CONSTIPATION, NO DIARRHEA, NO NAUSEA, NO VOMITING. GENITOURINARY: NO ABNORMAL DISCHARGE, NO DYSURIA, NO FREQUENT URINATION, NO HEMATURIA. NO COMPLAINTS OF PAIN IN THE GENITALS. MUSCULOSKELETAL: NO BACK PAIN, NO GOUT, NO JOINT PAIN, NO JOINT SWELLING, NO MUSCLE PAIN, NO MUSCLE STIFFNESS, NO NECK PAIN. INTEGUMENTARY: NO CHANGE IN COLOR, NO CHANGE IN HAIR/NAILS, NO DRYNESS, NO LESION, NO LUMPS, NO RASH. NEUROLOGICAL/PSYCH: NO ANXIETY, NOT DEPRESSED, NO EMOTIONAL PROBLEM, NO HEADACHE, NO NUMBNESS, NO PRE-EXISTING DEFICIT, NO HISTORY OF SEIZURES, NO TREMORS, NO WEAKNESS. HEMATOLOGIC/LYMPHATIC: NOT ANEMIC, NO HISTORY OF BLOOD CLOTS, NO APPARENT BLEEDING, NO BRUISING, GLANDS NOT SWOLLEN. ALL SYSTEMS NEGATIVE, EXCEPT NOTED. Physical Exam Physical Exam Dictation VITAL SIGNS: REVIEWED. GENERAL APPEARANCE: ALERT, ORIENTED X3, NO ACUTE DISTRESS, OBESE. HEAD AND FACE: NON-TRAUMATIC. EYES: PERRL, PINK CONJUNCTIVAS, EYELID NO TRAUMA, ANTERIOR CHAMBER CLEAR. EARS: PINNAS INTACT AND NO SIGNS OF TRAUMA OR ERYTHEMA. EAR CANALS CLEAR AND NO DISCHARGE. TMS NO ERYTHEMA. NOSE: NO DISCHARGE, NO BLEEDING. OROPHARYNX: MOUTH NORMAL, TEETH NO CARIES, TONGUE PINK. PHARYNX CLEAR, NO ERYTHEMA. TONSILS NO EXUDATES, NO ABSCESSES NOTED. MUCOUS MEMBRANE MOIST. NECK: SUPPLE, NON-TENDER, NO THYROMEGALY, NO MASSES, NO JVD, NO BRUITS. BREAST: DEFERRED. CHEST: NO TENDERNESS, NO CREPITUS, NO PARADOXICAL MOVEMENT, NO RETRACTIONS. LUNGS: CLEAR, WELL-VENTILATED, SYMMETRIC, NO RALES, NO WHEEZING, NO RHONCHI, NO STRIDOR, GOOD BREATH SOUNDS BILATERALLY. HEART: REGULAR RATE, REGULAR RHYTHM, NO MURMUR, NO GALLOPS. VASCULAR: NO PERIPHERAL EDEMA. ABDOMEN: SOFT, POSITIVE BOWEL SOUNDS, NONDISTENDED, NO GUARDING, NONTENDER, NO REBOUND, NO MASSES NO HEPATOMEGALY, NO SPLENOMEGALY, NO DOSHI'S SIGN, NO HERNIAS. RECTAL: DEFERRED. GENITAL: DEFERRED. NEUROLOGICAL: NORMAL SPEECH, GROSS MOTOR FUNCTION INTACT, GROSS SENSORY FUNCTION INTACT. MUSCULOSKELETAL: NECK NONTENDER, FULL RANGE OF MOTION, BACK NONTENDER, FULL RANGE OF MOTION. EXTREMITIES: NONTENDER, FULL RANGE OF MOTION. SKIN: COLOR PINK, DRY, NO TURGOR, NO RASH, NO LACERATIONS, NO ABRASIONS, NO CONTUSIONS. LYMPHATICS: DEFERRED. Results Laboratory and Microbiology Lab and Micro Result Laboratory Tests Test 05/25/24 13:44 White Blood Count 5.5 K/uL (4.8-10.8) Red Blood Count 3.59 MIL/uL (4.50-6.20) L Hemoglobin 11.8 g/dL (14.0-18.0) L Hematocrit 33.9 % (42-54) L Mean Corpuscular Volume 94.4 fL (79-99) Mean Corpuscular Hemoglobin 32.9 pg (27.0-33.0) Mean Corpuscular Hemoglobin Concent 34.8 g/dL (32.0-36.0) Red Cell Distribution Width 15.0 % (11.0-15.5) Platelet Count 153 K/uL (130-400) Mean Platelet Volume 9.9 fL (7.5-10.5) Immature Granulocyte % (Auto) 0.6 % (0-1) Neutrophils (%) (Auto) 88.7 % (40.0-77.0) H Lymphocytes (%) (Auto) 7.7 % (21.0-51.0) L Monocytes (%) (Auto) 2.6 % (3.0-13.0) L Eosinophils (%) (Auto) 0.2 % (0.0-8.0) Basophils (%) (Auto) 0.2 % (0.0-5.0) Neutrophils # (Auto) 4.8 K/uL (1.8-7.7) Lymphocytes # (Auto) 0.4 K/uL (1.0-4.8) L Monocytes # (Auto) 0.1 K/uL (0.1-1.0) Eosinophils # (Auto) 0.01 K/uL (0.00-0.70) Basophils # (Auto) 0.01 K/uL (0.00-0.20) Absolute Immature Granulocyte (auto 0.03 K/uL (0-1) Nucleated Red Blood Cells 0.0 % (0.0-0.19) White Cell Morphology Comment See comments Sodium Level 140 mmol/L (136-145) Potassium Level 3.7 mmol/L (3.5-5.1) Chloride Level 104 mmol/L (101-111) Carbon Dioxide Level 27 mmol/L (21-32) Blood Urea Nitrogen 24 mg/dL (7-18) H Creatinine 1.3 mg/dL (0.5-1.3) Glomerular Filtration Rate Calc 57 mL/min (>90) Random Glucose 350 mg/dL (70-105) H Total Calcium 8.9 mg/dL (8.5-10.1) Labs Reviewed?: Yes EKG/XRAY/US/CT/MRI CT Scan Comment [address] [address] IMAGING REPORT Signed PATIENT: RANDI CAMPBELL MR#: [id number] : 1945 SEX: M AGE: 79 LOCATION: [facility] ORDER [id number] STATUS: REG ER REPORT#: [id number] SERVICE 1325 REASON: FALL ORDERING PHYSICIAN: JETHRO SALAMANCA MD PROCEDURE: HEAD WO - CT HEAD/BRAIN W/O CONTRAST Exam Type: CT HEAD/BRAIN W/O CONTRAST Clinical Information: FALL Comparison: None CT Dose Index (CTDI): 57.33 mGy Dose Length Product (DLP): 956.79 total mGy-cm Findings: The examination shows atrophy. There is low attenuation throughout the periventricular white matter locations, consistent with chronic small vessel ischemic changes. 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 No acute intra- or extra-axial fluid collections are seen. There is no evidence of acute or chronic hemorrhage. There is no mass effect or shift of midline structures. The skull windows show no significant abnormalities. IMPRESSION: 1. ATROPHY AND CHRONIC CHANGES. This study was performed using dose reduction techniques to include automated exposure control and/or adjustment of the mA and/or kV according to patient size. DICTATED BY: DAISY MANZANO MD DATE: 05/25/241428 ELECTRONICALLY SIGNED BY: DAISY MANZANO MD DATE: 05/25/24 1433 [facility] MDM: DIFFERENTIAL DIAGNOSIS: ON CHEMOTHERAPY, DEHYDRATION, GENERALIZED BODY WEAKNESS, PATIENT IS A 79-YEAR-OLD GENTLEMAN ON CHEMOTHERAPY FREQUENTLY PRESENTS WITH DEHYDRATION. PATIENT DOES NOT DRINK WATER INDICATED BY PCP PER FAMILY MEMBER. PATIENT WAS TO GET IV HYDRATED AT [facility] BUT MORE ABLE TO FIND IV SITE. PATIENT WAS SENT IN FOR FURTHER EVALUATION AND IV HYDRATION. ED Course Orders Procedure Category Date Status Time Cbc With Differential LAB 05/25/24 Complete 13:25 Basic Metabolic Panel LAB 05/25/24 Complete 13:25 Ct Head/Brain W/O CT 05/25/24 Resulted Contrast 13:25 0.9%Nacl 1000ml (Ns PHA 05/25/24 Complete 1000ml) 13:30 Current Medications Medications (Trade) Dose Ordered Sig/Heidy Route PRN Reason Start Time Stop Time Status Last Admin Dose Admin Sodium Chloride 1,000 ml @ 0 mls/hr ONCE ONCE IV 05/25/24 13:30 05/25/24 13:31 DC 05/25/24 16:30 Vital Signs Date Time Temp Pulse Resp B/P (MAP) Pulse Ox O2 Delivery O2 Flow Rate FiO2 05/25/24 16:08 97.5 77 14 122/74 96 Room Air* 0 21 05/25/24 13:47 97.5 86 16 91/60 97 Room Air 0 DX & DISP Disposition: Discharge Departure Impression: Primary Impression: Dehydration Additional Impression: Maintenance chemotherapy Condition: Stable Additional Instructions: FOLLOW-UP WITH PRIMARY CARE PROVIDER IN 1 TO 2 DAYS. TAKE MEDICATIONS DI RECTED HERE IN THE EMERGENCY ROOM. OKAY TO CONTINUE HOME MEDICATIONS UNLESS OTHERWISE DISCUSSED DURING YOUR VISIT IN THE EMERGENCY ROOM TODAY. RETURN TO YOUR NEAREST EMERGENCY ROOM IF SYMPTOMS WORSEN OR IF THERE IS NO IMPROVEMENT. CALL 911 IF YOU NEED IMMEDIATE ASSISTANCE. TAKE TYLENOL [id number] NEEDED AND IF NO CONTRAINDICATIONS ARE PRESENT. INCREASE ORAL HYDRATION. A WOUND CULTURE OR URINE CULTURE WAS ORDERED HERE IN THE EMERGENCY ROOM DEPARTMENT PLEASE FOLLOW-UP WITH PRIMARY CARE PROVIDER AND ADVISE THEM TO GET REPEAT PORTS FROM OUR FACILITY. IF YOU HAD ANY MANDY WRAP/SPLINTS THAT WERE APPLIED HERE, PLEASE DO NOT REMOVE THEM UNTIL YOU SEE YOUR PRIMARY CARE OR SPECIALTY. Referrals: Referrals: DAPHNE GREEN MD (PCP) Time of Disposition: 16:56 JETHRO SALAMANCA MD May 25, 2024 13:35
[2024-05-25 13:55] LABS: BASOPHILS # (AUTO) 0.01 K/uL (0.00-0.20); BASOPHILS % (AUTO) 0.2 % (0.0-5.0); EOSINOPHILS # (AUTO) 0.01 K/uL (0.00-0.70); EOSINOPHILS % (AUTO) 0.2 % (0.0-8.0); HEMATOCRIT 33.9 % (42-54); IMMATURE GRANULOCYTE ABSOLUTE 0.03 K/uL (0-1); LYMPHOCYTES # (AUTO) 0.4 K/uL (1.0-4.8); LYMPHOCYTES % (AUTO) 7.7 % (21.0-51.0); MEAN CORPUSCULAR HEMOGLOBIN 32.9 pg (27.0-33.0); MEAN CORPUSCULAR HGB CONC 34.8 g/dL (32.0-36.0); MEAN CORPUSCULAR VOLUME 94.4 fL (79-99); MONOCYTES # (AUTO) 0.1 K/uL (0.1-1.0); MONOCYTES % (AUTO) 2.6 % (3.0-13.0); NEUTROPHILS # (AUTO) 4.8 K/uL (1.8-7.7); NEUTROPHILS % (AUTO) 88.7 % (40.0-77.0); PLATELET COUNT (AUTO) 153 K/uL (130-400); RED BLOOD CELL COUNT(AUTO) 3.59 MIL/uL (4.50-6.20); WHITE BLOOD COUNT (AUTO) 5.5 K/uL (4.8-10.8)
[2024-05-25 14:07] LABS: CREATININE 1.3 mg/dL (0.5-1.3); POTASSIUM 3.7 mmol/L (3.5-5.1)
--- NOTE | 2024-05-25 14:33 | HMCIMG ---
Exam Type: CT HEAD/BRAIN W/O CONTRAST Clinical Information: FALL Comparison: None CT Dose Index (CTDI): 57.33 mGy Dose Length Product (DLP): 956.79 total mGy-cm Findings: The examination shows atrophy. There is low attenuation throughout the periventricular white matter locations, consistent with chronic small vessel ischemic changes. 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 No acute intra- or extra-axial fluid collections are seen. There is no evidence of acute or chronic hemorrhage. There is no mass effect or shift of midline structures. The skull windows show no significant abnormalities. IMPRESSION: 1. ATROPHY AND CHRONIC CHANGES. This study was performed using dose reduction techniques to include automated exposure control and/or adjustment of the mA and/or kV according to patient size.
--- NOTE | 2024-05-25 16:00 | NUR ---
MOVED TO ER 14 AT THIS TIME
--- NOTE | 2024-05-25 16:07 | NUR ---
TRAUMA LEVEL 2 ACTIVATED. PATIENT MECHANICAL FALL TODAY 0800 [place] [address]. ON ELIQUIS.
--- NOTE | 2024-05-25 16:08 | NUR ---
TRAUMA LEVEL II CALLED ON PT.
[2024-05-25] MEDS: 0.9%NACL 1000ML 1,000 ML IV ONE (16:30)
[2024-05-25 16:57] VITALS: BP 125/67; PULSE 73; RESP 18; TEMP 97.5; O2SAT 96
== END 2024-05-25 17:01 | disposition home or self-care (01) ==
LOC: EDH 13:16
DX: E86.0 Dehydration (principal); E11.9 Type 2 diabetes mellitus without complications; I10 Essential (primary) hypertension; Z79.01 Long term (current) use of anticoagulants; Z79.52 Long term (current) use of systemic steroids; Z79.84 Long term (current) use of oral hypoglycemic drugs; Z79.899 Other long term (current) drug therapy; Z85.841 Personal history of malignant neoplasm of brain
CPT/HCPCS: 99284; 70450; 80048; 85025; 36415; J7030

== ENCOUNTER 2025-03-29 17:50 | Inpatient (IN) | payer OTHER ==
[~2025-03-29] VITALS: Ht 464.5 cm; Wt 76.3 kg
--- NOTE | 2025-03-29 18:15 | ERN ---
General Chief Complaint: Urinary Catheter Problems Stated Complaint: AMOR CATHETER PROBLEM Time Seen by MD: 17:52 Source: patient History of Present Illness Initial Comments Patient is a 79-year-old gentleman coming in complaining of Amor catheter pr oblems. Per family member patient was not able to voids secondary to having issues with a his Amor catheter. Patient does has a history of chronic indwelling Amor catheter. Allergies: Coded Allergies: No Known Drug Allergies (Unverified Allergy, Unknown, 12/24/23) Home Meds Active Scripts Apixaban (Eliquis) 5 Mg Tablet, 1 TAB PO BID for 30 Days, #60 TAB 0 Refills Prov:MEGGAN GALICIA PAC 03/20/24 Reported Medications Insulin Glargine,Hum.rec.anlog (Toujeo Solostar) 300 Unit/Ml (1.5 Ml) Insuln.pen, 300 UNIT SQ BID, SYRINGE 08/02/24 Multivitamin (Multivitamin) 1 Each Tablet, 1 TAB PO DAILY for 30 Days, #30 TAB 0 Refills 08/02/24 Melatonin (Melatonin) 3 Mg Capsule, 1 CAP PO HS for 30 Days, #30 CAP 0 Refills 08/02/24 Cephalexin (Cephalexin) 500 Mg Capsule, 1 CAP PO BID for 10 Days, #20 CAP 0 Refills 08/02/24 Insulin Glargine,Hum.rec.anlog (Toujeo Solostar) 300 Unit/Ml (1.5 Ml) Insuln.pen, 40 UNIT SQ HS, SYRINGE 05/07/24 Dutasteride (Dutasteride) 0.5 Mg Capsule, 0.5 MG PO DAILY, CAP 05/07/24 Dexamethasone (Dexamethasone) 0.5 Mg Tablet, 4 MG PO DAILY, TAB 05/07/24 Famotidine (Famotidine) 20 Mg Tablet, 20 MG PO HS for 90 Days, TAB 05/07/24 Levetiracetam (Levetiracetam) 500 Mg Tab.er.24h, 500 MG PO BID, TAB 05/07/24 Pravastatin Sodium (Pravastatin Sodium) 40 Mg Tablet, 40 MG PO DAILY, TAB 05/07/24 Ferrous Sulfate (Ferrous Sulfate) 325 Mg (65 Mg Iron) Ectab, 325 MG PO DAILY, TAB.EC 05/07/24 Buspirone HCl (Buspirone HCl) 5 Mg Tablet, 5 MG PO BID, TAB 05/07/24 Metformin HCl (Metformin HCl) 1,000 Mg Tablet, 1000 MG PO BID, TAB 05/07/24 Past Medical History Past Medical History: Coagulopathy, Dementia, Diabetes-Type II, Hypertension, Other Medical History Other: PULMONARY EMBOLISM , BRAIN TUMOR Past Surgical History: Other Surgical History Other: BRAIN TUMOR REMOVAL Family History Family History: Negative Social History Social History: Negative ROS Dictation CONSTITUTIONAL: No chills, no fever, no weakness, no diaphoresis, no malaise. HEAD/FACE: No signs of trauma. EENT: No eye pain, no blurred vision, no tearing, no double vision, no ear pain, no ear discharge, no nose pain, no nasal congestion, no throat pain, no throat swelling, no mouth pain. RESPIRATORY: No cough, no orthopnea, no SOB, no stridor, no wheezing. CARDIOVASCULAR: No chest pain, no edema, no palpitations, no syncope. GASTROINTESTINAL/ABDOMINAL: No abdominal pain, no constipation, no diarrhea, no nausea, no vomiting. GENITOURINARY: No abnormal discharge, no dysuria, no frequent urination, no hematuria. No complaints of pain in the genitals. MUSCULOSKELETAL: No back pain, no gout, no joint pain, no joint swelling, no muscle pain, no muscle stiffness, no neck pain. INTEGUMENTARY: No change in color, no change in hair/nails, no dryness, no lesion, no lumps, no rash. NEUROLOGICAL/PSYCH: No anxiety, not depressed, no emotional problem, no headache, no numbness, no pre-existing deficit, no history of seizures, no tr emors, no weakness. HEMATOLOGIC/LYMPHATIC: Not anemic, no history of blood clots, no apparent bleeding, no bruising, glands not swollen. All Systems Negative, Except as Noted. Physical Exam Physical Exam Dictation VITAL SIGNS: Reviewed. GENERAL APPEARANCE: Alert, oriented x3, no acute distress, obese. HEAD AND FACE: Non-traumatic. EYES: PERRL, pink conjunctivas, eyelid no trauma, anterior chamber clear. EARS: Pinnas intact and no signs of trauma or erythema. Ear canals clear and no discharge. TMs no erythema. NOSE: No discharge, no bleeding. OROPHARYNX: Mouth normal, teeth no caries, tongue pink. Pharynx clear, no erythema. Tonsils no exudates, no abscesses noted. Mucous membrane moist. NECK: Supple, non-tender, no thyromegaly, no masses, no JVD, no bruits. BREAST: Deferred. CHEST: No tenderness, no crepitus, no paradoxical movement, no retractions. LUNGS: Clear, well-ventilated, symmetric, no rales, no wheezing, no rhonchi, no stridor, good breath sounds bilaterally. HEART: Regular rate, regular rhythm, no murmur, no gallops. VASCULAR: No peripheral edema. ABDOMEN: Soft, positive bowel sounds, nondistended, no guarding, nontender, no rebound, no masses no hepatomegaly, no splenomegaly, no Edmonds's sign, no hernias. RECTAL: Deferred. GENITAL: Deferred. NEUROLOGICAL: Normal speech, gross motor function intact, gross sensory function intact. MUSCULOSKELETAL: Neck nontender, full range of motion, back nontender, full range of motion. EXTREMITIES: Nontender, full range of motion. SKIN: Color pink, dry, no turgor, no rash, no lacerations, no abrasions, no contusions. LYMPHATICS: Deferred. Results Laboratory and Microbiology Lab and Micro Result Laboratory Tests Test 03/29/25 18:29 03/29/25 19:58 White Blood Count 14.6 K/uL (4.8-10.8) H Red Blood Count 4.03 MIL/uL (4.50-6.20) L Hemoglobin 12.8 g/dL (14.0-18.0) L Hematocrit 37.7 % (42-54) L Mean Corpuscular Volume 93.5 fL (79-99) Mean Corpuscular Hemoglobin 31.8 pg (27.0-33.0) Mean Corpuscular Hemoglobin Concent 34.0 g/dL (32.0-36.0) Red Cell Distribution Width 14.6 % (11.0-15.5) Platelet Count 194 K/uL (130-400) Mean Platelet Volume 9.4 fL (7.5-10.5) Immature Granulocyte % (Auto) 0.8 % (0-1) Neutrophils (%) (Auto) 90.9 % (40.0-77.0) H Lymphocytes (%) (Auto) 5.4 % (21.0-51.0) L Monocytes (%) (Auto) 2.8 % (3.0-13.0) L Eosinophils (%) (Auto) 0.0 % (0.0-8.0) Basophils (%) (Auto) 0.1 % (0.0-5.0) Neutrophils # (Auto) 13.2 K/uL (1.8-7.7) H Lymphocytes # (Auto) 0.8 K/uL (1.0-4.8) L Monocytes # (Auto) 0.4 K/uL (0.1-1.0) Eosinophils # (Auto) 0.00 K/uL (0.00-0.70) Basophils # (Auto) 0.02 K/uL (0.00-0.20) Absolute Immature Granulocyte (auto 0.12 K/uL (0-1) Nucleated Red Blood Cells 0.0 % (0.0-0.19) White Cell Morphology Comment See comments Sodium Level 136 mmol/L (136-145) Potassium Level 5.0 mmol/L (3.5-5.1) Chloride Level 102 mmol/L (101-111) Carbon Dioxide Level 21 mmol/L (21-32) Blood Urea Nitrogen 38 mg/dL (7-18) H Creatinine 1.5 mg/dL (0.5-1.3) H Glomerular Filtration Rate Calc 48 mL/min (>90) Random Glucose 296 mg/dL (70-105) H Total Calcium 9.5 mg/dL (8.5-10.1) Urine Color YELLOW (YELLOW) Urine Appearance CLOUDY (CLEAR) H Urine pH 8.5 (5.0-8.0) H Urine Specific [place] 1.010 (1.001-1.031) Urine Protein 20 mg/dL (NEGATIVE) H Urine Glucose (UA) NEGATIVE mg/dL (NEGATIVE) Urine Ketones NEGATIVE mg/dL (NEGATIVE) Urine Occult Blood NEGATIVE (NEGATIVE) Urine Nitrate NEGATIVE (NEGATIVE) Urine Bilirubin NEGATIVE mg/dL (NEGATIVE) Urine Urobilinogen 0.2 mg/dL (0.2-1.0) Urine Leukocyte Esterase 500 Bishop/uL (NEGATIVE) H Labs Reviewed?: Yes MDM MDM: Differential diagnosis: Amor catheter malfunction, UTI, dysuria, Rationale: Tests considered and ordered secondary to shared decision making include: Previous outside records reviewed: Old ER visits. Risk of complication and/or morbidity or mortality of patient management: None Medications-Per medication reconciliation Need for hospitalization: Patient does not meet criteria for hospitalization. Need for emergency major/minor surgery: No There are no social concerns with this patient. Prescription drug management Prescriptions will include symptomatic care Patient's prior external medical records from other ER visits were reviewed by me as indicated. Prior testing and results from previous visits were reviewed. Prior tests were taken into account with medical decision making and resource utilization, independent historian/historians were used to obtain complete medical history. I independently interpreted the test that were performed, results were reviewed by me and considered findings on radiology if ordered. Medical management and examination interpretation discussions were had by me with other qualified healthcare professionals as indicated for the patient's care. ED Course Orders Procedure Category Date Status Time Cbc With Differential LAB 03/29/25 Complete 18:00 Urinalysis Profile LAB 03/29/25 In Process 18:00 Basic Metabolic Panel LAB 03/29/25 Complete 18:00 Acetaminophen 500mg PHA 03/29/25 Complete Tab (Tylenol 500mg T 18:00 Culture Urine BETI 03/29/25 Logged 20:36 0.9%Nacl 1000ml (Ns PHA 03/29/25 Logged 1000ml) 21:00 Zosyn 3.375gm+Ns 50ml PHA 03/29/25 Verified (Zosyn 3.375gm+Ns 21:00 Current Medications Medications (Trade) Dose Ordered Sig/Heidy Route PRN Reason Start Time Stop Time Status Last Admin Dose Admin Acetaminophen (TYLenol 500MG TAB) 1,000 mg ONCE ONCE PO 03/29/25 18:00 03/29/25 18:06 DC 03/29/25 20:18 Vital Signs Date Time Temp Pulse Resp B/P (MAP) Pulse Ox O2 Delivery O2 Flow Rate FiO2 03/29/25 20:18 100.2 03/29/25 19:37 100.2 126 22 127/84 97 Room Air* 0 21 03/29/25 17:51 97.5 105 20 143/93 99 Room Air 8:57 p.m.: Patient is a 79-year-old male with dementia here for evaluation of Amor catheter issues. He was signed out to me by morning physician, Dr. Salamanca. On my examination patient is severely demented. His blood pressure is in the lower end of normal with a map of 67. He has not received any fluids last we will give him a 1 L normal saline bolus. He does have a white blood cell count and mildly dirty urine thus I will start him on Zosyn for a UTI. Given his condition I will admit the patient for IV antibiotics. DX & DISP Disposition: Inpatient Departure Impression: Primary Impression: Sepsis secondary to UTI Additional Impressions: Dementia, Acute kidney injury Condition: Stable Referrals: DAPHNE GREEN MD (PCP) JETHRO SALAMANCA MD Mar 29, 2025 18:15 ALEX MONGE MD Mar 29, 2025 21:00
[2025-03-29 18:35] LABS: IMMATURE GRANULOCYTE ABSOLUTE 0.12 K/uL (0-1); NUCLEATED RED BLOOD CELLS 0.0 % (0.0-0.19); PLATELET COUNT (AUTO) 194 K/uL (130-400); RED BLOOD CELL COUNT(AUTO) 4.03 MIL/uL (4.50-6.20); RED CELL DISTRIBUTION WIDTH 14.6 % (11.0-15.5); WHITE BLOOD COUNT (AUTO) 14.6 K/uL (4.8-10.8)
[2025-03-29 18:44] LABS: CREATININE 1.5 mg/dL (0.5-1.3); GLOMERULAR FILTR. RATE CALC 48.0 mL/min (>90); GLUCOSE,RANDOM 296.0 mg/dL (70-105); SODIUM SERUM 136.0 mmol/L (136-145); UREA NITROGEN, BLOOD 38.0 mg/dL (7-18)
--- NOTE | 2025-03-29 19:00 | NUR ---
PT JUST NOW PLACED IN ED BED 12
[2025-03-29 20:30] LABS: APPEARANCE,URINE CLOUDY (CLEAR); GLUCOSE, URINE (UA) NEGATIVE (NEGATIVE); LEUKOCYTE ESTERASE ,URINE 500 Leu/uL (NEGATIVE); NITRATE,URINE NEGATIVE (NEGATIVE); OCCULT BLOOD,URINE NEGATIVE (NEGATIVE)
[2025-03-29 20:36] LABS: ADD UA MICROSCOPIC YES
[2025-03-29 20:58] LABS: SQUAMOUS EPITHELIAL CELL,UR RARE /HPF (0-2); WBC CLUMP FEW /HPF (0-1)
[2025-03-29] MEDS ORDERED: 0.9%NACL 1000ML 1,000 ML IV SCH (21:00)
[2025-03-29] MEDS: 0.9%NACL 1000ML 1,000 ML IV SCH (21:18)
[2025-03-29] MEDS: ZOSYN 3.375GM +NS 50ML IV ONE (21:19)
[2025-03-29] MEDS ORDERED: NITROGLYCERIN 0.4 MG SL TAB SL PRN (22:00)
[2025-03-29] MEDS: ZOSYN 3.375GM +NS 50ML IVPB SCH (22:00)
[2025-03-29] MEDS ORDERED: GLUCAGON 1MG KIT 1 MG ML IM PRN (22:00)
[2025-03-29] MEDS ORDERED: guaiFENesin-DM 200/20MG 10ML PO PRN (22:00)
[2025-03-29] MEDS ORDERED: DEXTROSE 50%-WATER 50 ML DISP.SYRIN IV PRN (22:00)
[2025-03-29] MEDS ORDERED: MAG/ALUM/SIMETH 30 ML UDCUP PO PRN (22:00)
[2025-03-29] MEDS ORDERED: LACTULOSE 20 GM/30 ML UDCUP PO PRN (22:00)
--- NOTE | 2025-03-29 22:09 | HP ---
[facility] HISTORY & PHYSICAL Date Patient Seen: Mar 29, 2025 Time of Visit: 21:50 Supervising Physician: DR. SANDIP TRUONG Primary Care Physician: DR. ALLEN SERNA Outpatient Specialists: [ ] Inpatient Consults: [ ] PROBLEM LIST: 1. ACUTE COMPLICATED CYSTITIS 2. SEVERE SEPSIS DUE TO ACUTE COMPLICATED CYSTITIS 3. CHRONIC KIDNEY DISEASE STAGE 3A 4. METABOLIC ENCEPHALOPATHY SECONDARY TO SEVERE SEPSIS DUE TO ACUTE COMPLICATED CYSTITIS 5. FUNCTIONAL QUADRIPLEGIA 6. HISTORY OF CHRONIC AMOR CATHETER, POA CHIEF COMPLAINT: TACHYCARDIA, FEVER HPI: PATIENT IS A 79-YEAR-OLD MALE WITH PAST MEDICAL HISTORY SIGNIFICANT FOR DIABETES TYPE 2, HYPERTENSION, HEMORRHAGIC STROKE, DEMENTIA, CHRONIC AMOR CATHETER, UNDERWENT CRANIOTOMY, BROUGHT TO THE EMERGENCY DEPARTMENT BY FAMILY MEMBER FOR EVALUATION OF NEW ONSET OF DYSURIA, TACHYCARDIA FEVER, AND ALTERATION OF MENTAL STATUS THAT STARTED YESTERDAY. PER SON-IN-LAW AT BEDSIDE, FOR THE PAST24 HOURS, PATIENT IS BECOMING INCREASINGLY CONFUSED, HAS BEEN FEBRILE, AND TACHYCARDIC. TODAY, EMS WAS CALLED AT THE PATIENT'S RESIDENCE AND WAS TAKEN TO THE EMERGENCY DEPARTMENT FOR FURTHER EVALUATION AND TREATMENT. PATIENT WAS ASSESSED AT [facility], CONFUSED, AND UNABLE TO PROVIDE FURTHER HISTORY. THE WORKUP IN THE EMERGENCY DEPARTMENT SHOWS A TEMPERATURE OF 100.2, HEART RATE OF 126, BUN OF 38, CREATININE 1.5, GLUCOSE OF 296, LACTIC ACID OF 4.1, WBC OF 14.6, UA SHOWS UTI. THE EMERGENCY DEPARTMENT, PATIENT RECEIVED ZOSYN 3.375 G IV, ACETAMINOPHEN 1000 MG P.O., NS1 L BOLUS. PATIENT WILL BE ADMITTED TO PCCU FOR CLOSE MONITORING. PAST MEDICAL HX: see above PAST SURGICAL HX: noncontributory SOCIAL HISTORY: No tobacco, ETOH, or illicit drug use Coded Allergies: No Known Drug Allergies (Unverified Allergy, Unknown, 12/24/23) REVIEW OF SYSTEMS: 12 point ROS reviewed with patient. Pertinent positives mentioned above. Otherwise negative. PHYSICAL EXAM: GENERAL: CHRONICALLY ILL APPEARING HEENT: EOMI, Sclera non icteric, moist mucosa NECK: Supple, no JVD, trachea midline LUNGS: Clear breath sounds bilaterally. No wheezes HEART: Regular rate and rhythm. Normal S1 and S2, without murmurs ABD: Abdomen soft, nontender. Bowel sounds present EXT: No clubbing cyanosis or edema NEURO: CONFUSED Vital Signs (last 8hr) Date Time Temp Pulse Resp B/P (MAP) Pulse Ox O2 Delivery O2 Flow Rate FiO2 03/29/25 20:18 100.2 03/29/25 19:37 100.2 126 22 127/84 97 Room Air* 0 21 03/29/25 17:51 97.5 105 20 143/93 99 Room Air LABS: Hematology Labs: Test 03/29/25 18:29 Range/Units White Blood Count 14.6 H 4.8-10.8 K/uL Red Blood Count 4.03 L 4.50-6.20 MIL/uL Hemoglobin 12.8 L 14.0-18.0 g/dL Hematocrit 37.7 L 42-54 % Mean Corpuscular Volume 93.5 79-99 fL Mean Corpuscular Hemoglobin 31.8 27.0-33.0 pg Mean Corpuscular Hemoglobin Concent 34.0 32.0-36.0 g/dL Red Cell Distribution Width 14.6 11.0-15.5 % Platelet Count 194 130-400 K/uL Mean Platelet Volume 9.4 7.5-10.5 fL Immature Granulocyte % (Auto) 0.8 0-1 % Neutrophils (%) (Auto) 90.9 H 40.0-77.0 % Lymphocytes (%) (Auto) 5.4 L 21.0-51.0 % Monocytes (%) (Auto) 2.8 L 3.0-13.0 % Eosinophils (%) (Auto) 0.0 0.0-8.0 % Basophils (%) (Auto) 0.1 0.0-5.0 % Neutrophils # (Auto) 13.2 H 1.8-7.7 K/uL Lymphocytes # (Auto) 0.8 L 1.0-4.8 K/uL Monocytes # (Auto) 0.4 0.1-1.0 K/uL Eosinophils # (Auto) 0.00 0.00-0.70 K/uL Basophils # (Auto) 0.02 0.00-0.20 K/uL Absolute Immature Granulocyte (auto 0.12 0-1 K/uL Nucleated Red Blood Cells 0.0 0.0-0.19 % White Cell Morphology Comment See comments Chemistry Labs: Test 03/29/25 21:15 03/29/25 18:29 Range/Units Lactic Acid Level 4.1 H 0.8-2.5 mmol/L Sodium Level 136 136-145 mmol/L Potassium Level 5.0 3.5-5.1 mmol/L Chloride Level 102 101-111 mmol/L Carbon Dioxide Level 21 21-32 mmol/L Blood Urea Nitrogen 38 H 7-18 mg/dL Creatinine 1.5 H 0.5-1.3 mg/dL Glomerular Filtration Rate Calc 48 >90 mL/min Random Glucose 296 H 70-105 mg/dL Total Calcium 9.5 8.5-10.1 mg/dL DIAGNOSTICS / RADIOLOGY RESULTS: [ ] PLAN: Replace Amor catheter Zosyn 3.375 g IV every8 hours Obtain urine culture Blood culture x2 Start LR at 125 mL/hour Keep patient NPO Speech evaluation and treatment Obtain ammonia level Obtain CT brain without contrast stat PTOT evaluation and treatment FALL precautions Repeat lactic acid level and C7 All nephrotoxic drugs Monitor creatinine trend Accu-Cheks every 6 hours Insulin coverage per sliding scale Obtain hemoglobin A1c Lovenox for DVT prophylaxis Full code Disposition pending above NEURO: Minimize central acting medications as possible. Maintain fall precautions, adequate lighting during the day PULMONARY: Supplemental 02 as needed. Maintain aspiration precautions at all times CARDIOVASCULAR: Follow hemodynamics. Vital signs per facility protocol GI & NUTRITION: Continue with nutritional support. Continue stool softeners and laxatives as needed. KIDNEYS & ELECTROLYTES: Strict monitoring of intake, output and overall fluid balance. Avoid nephrotoxic medications to the extent possible. Medications to be dosed according to renal function. Monitor electrolytes and replace as needed ENDOCRINE: Maintain blood glucose between 100-180 at all times. Hypoglycemia protocol in place hemoglobin A1c INFECTIOUS DISEASE: Trend temperature, WBC and procalcitonin level Follow cultures, deescalate antibiotics as soon as possible. Panculture if new onset fever Zosyn 3.375 g IV every8 hours Blood culture x2 Obtain urine culture ONCOLOGY/HEMATOLOGY/COAGULATION: Monitor for s/s of bleeding Monitor hemoglobin, coagulation studies as needed SKIN: Pressure ulcer prevention per facility protocol Specialty mattress ORTHO/REHAB: Continue PT/OT Prophylaxis: Continue GI and DVT prophylaxis Code Status: Full Resuscitation Disposition: TBD Other: Case discussed with Riky España, and the above plan was formulated. MATT NAVARRO Mar 29, 2025 22:09
[2025-03-29 22:18] LABS: ABG BASE EXCESS -5.0 mmol/L (-2.0-3.0); ABG HCO3 18.3 mmol/L (21.0-28.0); ABG OXYGEN SATURATION 95.3 % (94.0-98.0); ABG PCO2 30 mmHg (35-48); ABG PH 7.408 (7.350-7.450); PO2, ARTERIAL BG 74.4 mmHg (83.0-108.0); TEMPERATURE, CELSIUS BG 37.0 CELSIUS (35.5-37.0); VENT MODE, BG RA (ROOM AIR)
--- NOTE | 2025-03-29 22:18 | HMCIMG ---
EXAM: CT Head Without IV contrast. CLINICAL HISTORY: AMS TECHNIQUE: Axial computed tomography images of the head/brain without intravenous contrast. COMPARISON: None provided. FINDINGS: BRAIN: No evidence of acute hemorrhage. No mass lesion. No CT evidence for acute territorial infarct. No midline shift or extra-axial collections. Postoperative changes with encephalomalacia right temporal lobe. Atrophy. Chronic microangiopathy. VENTRICLES: No hydrocephalus. ORBITS: The orbits are unremarkable. SINUSES AND MASTOIDS: The paranasal sinuses and mastoid air cells are clear. BONES: No fracture. Right temporal craniotomy SOFT TISSUES: Unremarkable. IMPRESSION: No acute intracranial abnormality. /[place]
--- NOTE | 2025-03-29 23:40 | HMCIMG ---
EXAM: CR Chest, 1 View. CLINICAL HISTORY: AMS COMPARISON: None provided. FINDINGS: LUNGS: Poor inspiratory effort with linear atelectatic changes in bilateral lower lung retana. There is no acute infiltrate or other acute finding. PLEURAL SPACES: No pleural effusion or pneumothorax. MEDIASTINUM: Cardiac size and mediastinal contours neely within normal limits. BONES: No acute osseous abnormality. IMPRESSION: No acute cardiopulmonary pathology is evident within the technical limitations of the study. /[place]
[2025-03-29] MEDS: NOREPINEPHRIN 4MG/NS 250ML 0 ML IV ONE (23:54)
[2025-03-29] MEDS: NOREPINEPHRIN 4MG/NS 250ML 250 ML IV ONE (23:54)
[2025-03-29] MEDS: LACTATED RINGERS 1000ML 1,000 ML IV SCH (23:57)
[2025-03-30] VITALS (60 sets, daily range): BP systolic 97–159; BP diastolic 37–104; PULSE 51–92; RESP 4–29; TEMP 97–101.2; O2SAT 99
[2025-03-30] MEDS ORDERED: NOREPINEPHRIN 4MG/NS 250ML 250 ML IV SCH
[2025-03-30] MEDS ORDERED: 0.9%NACL 50ML IV SCH
[2025-03-30 06:23] LABS: ASPARTATE AMINOTRANSFERASE 13.0 U/L (10-37); CREATININE 1.2 mg/dL (0.5-1.3); GLOMERULAR FILTR. RATE CALC 62.0 mL/min (>90); GLUCOSE,RANDOM 205.0 mg/dL (70-105); SODIUM SERUM 142.0 mmol/L (136-145); TOTAL PROTEIN, SERUM 5.4 g/dL (6.0-8.3); UREA NITROGEN, BLOOD 32.0 mg/dL (7-18)
[2025-03-30] MEDS: ENOXAPARIN SODIUM 40 MG/0.4 ML SYRINGE SQ SCH (09:30)
[2025-03-30] MEDS: FAMOTIDINE 20MG VIAL IV SCH (09:30)
--- NOTE | 2025-03-30 11:37 | PN ---
[facility] PROGRESS NOTE Date Patient Seen: Mar 30, 2025 Time of Visit: 11:32 Supervising Physician: [Brenda ] Primary Care Physician: DR. POWERS;Michael SERNA Outpatient Specialists: [ ] Inpatient Consults: [ ] PROBLEM LIST: Severe sepsis secondary to acute complicated cystitis Metabolic encephalopathy secondary to sepsis Chronic kidney disease Stage II pressure injury right buttock POA Functional quadriplegia History of chronic Snider catheter INTERVAL HISTORY: Patient seen and examined, all labs reviewed.No major events reported overnight. Patient has been afebrile Patient resting comfortably in bed. Patient on pressors. Patient continues on IV fluids LR at [address], changed in the emergency room. Patient noted with stage II to right buttocks, POA. Patient on Zosyn. Pending culture results PLAN: Continue IV fluid Continue IV antibiotics, follow culture results. Wean off pressors. NPO patient pending swallow study. Venelex to pressure injury. Total critical care time spent 55 minutes, this excludes any procedures performed or any time spent in educational or teaching. Case was discussed and seen with my supervising physician. REVIEW OF SYSTEMS: 12 point ROS reviewed with patient. Pertinent positives mentioned above. Otherwise negative. PHYSICAL EXAM: GENERAL: CHRONICALLY ILL APPEARING, quadriplegic HEENT: EOMI, Sclera non icteric, moist mucosa NECK: Supple, no JVD, trachea midline LUNGS: Clear breath sounds bilaterally. No wheezes HEART: Regular rate and rhythm. Normal S1 and S2, without murmurs ABD: Abdomen soft, nontender. Bowel sounds present EXT: No clubbing cyanosis or edema NEURO: CONFUSED Vital Signs (last 8hr) Date Time Temp Pulse Resp B/P (MAP) Pulse Ox O2 Delivery O2 Flow Rate FiO2 03/30/25 08:00 97.9 03/30/25 06:45 58 14 144/73 (96) 100 03/30/25 06:30 62 15 143/65 (91) 100 03/30/25 06:15 60 17 143/73 (96) 96 03/30/25 06:00 61 15 128/72 (90) 99 03/30/25 05:45 71 17 107/62 (77) 100 03/30/25 05:30 86 21 146/104 (118) 99 03/30/25 05:18 97.0 03/30/25 05:15 65 15 139/73 (95) 100 03/30/25 05:00 72 15 125/70 (88) 98 03/30/25 04:52 71 15 137/72 (93) 100 03/30/25 04:45 75 15 127/71 (89) 98 03/30/25 04:30 80 15 142/72 (95) 97 03/30/25 04:15 92 16 113/65 (81) 97 03/30/25 04:00 80 17 144/81 (102) 99 03/30/25 04:00 99 Nasal Cannula* 2 28 03/30/25 03:52 77 16 146/75 (98) 98 03/30/25 03:45 78 17 159/78 (105) 98 LABS: Hematology Labs: Test 03/29/25 18:29 Range/Units White Blood Count 14.6 H 4.8-10.8 K/uL Red Blood Count 4.03 L 4.50-6.20 MIL/uL Hemoglobin 12.8 L 14.0-18.0 g/dL Hematocrit 37.7 L 42-54 % Mean Corpuscular Volume 93.5 79-99 fL Mean Corpuscular Hemoglobin 31.8 27.0-33.0 pg Mean Corpuscular Hemoglobin Concent 34.0 32.0-36.0 g/dL Red Cell Distribution Width 14.6 11.0-15.5 % Platelet Count 194 130-400 K/uL Mean Platelet Volume 9.4 7.5-10.5 fL Immature Granulocyte % (Auto) 0.8 0-1 % Neutrophils (%) (Auto) 90.9 H 40.0-77.0 % Lymphocytes (%) (Auto) 5.4 L 21.0-51.0 % Monocytes (%) (Auto) 2.8 L 3.0-13.0 % Eosinophils (%) (Auto) 0.0 0.0-8.0 % Basophils (%) (Auto) 0.1 0.0-5.0 % Neutrophils # (Auto) 13.2 H 1.8-7.7 K/uL Lymphocytes # (Auto) 0.8 L 1.0-4.8 K/uL Monocytes # (Auto) 0.4 0.1-1.0 K/uL Eosinophils # (Auto) 0.00 0.00-0.70 K/uL Basophils # (Auto) 0.02 0.00-0.20 K/uL Absolute Immature Granulocyte (auto 0.12 0-1 K/uL Nucleated Red Blood Cells 0.0 0.0-0.19 % White Cell Morphology Comment See comments Chemistry Labs: Test 03/30/25 06:40 03/30/25 05:45 03/30/25 00:51 03/29/25 22:33 Range/Units Whole Blood Glucose 181 H 70-110 MG/DL Sodium Level 142 136-145 mmol/L Potassium Level 3.6 3.5-5.1 mmol/L Chloride Level 108 101-111 mmol/L Carbon Dioxide Level 24 21-32 mmol/L Blood Urea Nitrogen 32 H 7-18 mg/dL Creatinine 1.2 0.5-1.3 mg/dL Glomerular Filtration Rate Calc 62 >90 mL/min Random Glucose 205 H 70-105 mg/dL Total Calcium 8.8 8.5-10.1 mg/dL Total Bilirubin 0.7 0.2-1.0 mg/dL Aspartate Amino Transf (AST/SGOT) 13 10-37 U/L Alanine Aminotransferase (ALT/SGPT) 20 12-78 U/L Alkaline Phosphatase 56 50-136 U/L Total Protein 5.4 L 6.0-8.3 g/dL Albumin 2.5 L 3.5-5.0 g/dL Lactic Acid Level 2.5 0.8-2.5 mmol/L Ammonia 38 H 11-32 umol/L Test 03/29/25 21:15 03/29/25 18:29 Range/Units Procalcitonin 2.12 H 0.05-0.5 ng/mL Hemoglobin A1c 6.9 H 4.0-6.0 % Estimated Average Glucose (eAG) 151 H 70-126 mg/dL DIAGNOSTICS / RADIOLOGY RESULTS: [ ] PLAN NEURO: Minimize central acting medications as possible. Fall Precautions. Well lighted room through the day and minimize interruptions through the night to prevent acute delirium. PULMONARY: Supplemental 02 as needed Titrate Fio2 to keep Spo2 > or = 90% DuoNebs and CPT as needed IS hourly while awake for pulmonary hygiene Out of bed to chair as tolerated VAP Bundle Vent/BIPAP Settings: [ ] Driving pressure: [ ] P Plat: [ ] Static C: [ ] Static R: [ ] P/F Ratio: [ ] CARDIOVASCULAR: Follow hemodynamics. Titrate vasopressor to keep MAP >65 or systolic blood pressure >95mmHg DIPS: [ ] LINES: [ ] GI & NUTRITION: Continue nutritional support Aspirations precautions Prokinetic agents and laxatives as needed KIDNEYS & ELECTROLYTES: Strict monitoring of intake and output Daily weights Avoid nephrotoxic agents Monitor electrolytes and replace as needed Goal urine output of 30mL/hr or 0.5mL/kg/hr Urine output: [ ] Fluid Balance: [ ] ENDOCRINE: Maintain blood glucose between 100-180 at all times. Insulin sliding scale for blood glucose management INFECTIOUS DISEASE: Trend temperature. Rizzo-culture if febrile. Micro: [ ] Antibiotics: [ ] HEMATOLOGY & COAGULATION: Monitor H&H. Keep Hgb > 7 Transfuse 1 unit of PRBC for Hgb < 7 Transfuse 1 pack of platelets of platelets < 20, 000 Watch for any signs and symptoms of bleeding SKIN: Pressure ulcer prevention per facility protocol Rehab: PT/OT Prophylaxis: GI: [ ] DVT: [ ] Code Status: Full Resuscitation Disposition: [ ] [facility] Mar 30, 2025 11:37
--- NOTE | 2025-03-30 18:00 | NUR ---
KEKE LIM PA WAS UPDATED ON THE PATIENT, TOLERATED THE FOOD, AND WAS HUNGRY. HE ORDERED TO FEED THE PATIENT.
--- NOTE | 2025-03-30 19:01 | NUR ---
BEDSIDE SWALLOW EVALUATION: No s/s of aspiration. RECOMMENDATIONS: Regular textured solids, thin liquids, and whole pills. COMPENSATORY STRATEGIES: 1. Upright during PO intake 2. Alternate bites/sips 3. Small bites/sips TENT ASSEMBLER reviewed results and recommendations with patient and nurse Estefania. ST is not indicated at this time. TENT ASSEMBLER explained risks and consequences of aspiration. All questions answered.
[2025-03-30] MEDS: BALSAM PERU/CASTOR OIL 60 GM TUBE TP SCH (21:46)
[2025-03-31] VITALS (37 sets, daily range): BP systolic 96–149; BP diastolic 46–92; PULSE 60–76; RESP 13–27; TEMP 97.9–99.3; O2SAT 95–100
[2025-03-31 05:48] LABS: IMMATURE GRANULOCYTE ABSOLUTE 0.02 K/uL (0-1); NUCLEATED RED BLOOD CELLS 0.0 % (0.0-0.19); PLATELET COUNT (AUTO) 67 K/uL (130-400); RED BLOOD CELL COUNT(AUTO) 2.87 MIL/uL (4.50-6.20); RED CELL DISTRIBUTION WIDTH 14.3 % (11.0-15.5); WHITE BLOOD COUNT (AUTO) 3.7 K/uL (4.8-10.8)
[2025-03-31 06:03] LABS: ASPARTATE AMINOTRANSFERASE 34.0 U/L (10-37); CREATININE 1.0 mg/dL (0.5-1.3); GLOMERULAR FILTR. RATE CALC 78.0 mL/min (>90); GLUCOSE,RANDOM 73.0 mg/dL (70-105); SODIUM SERUM 143.0 mmol/L (136-145); TOTAL PROTEIN, SERUM 5.0 g/dL (6.0-8.3); UREA NITROGEN, BLOOD 22.0 mg/dL (7-18)
--- NOTE | 2025-03-31 08:40 | NUR ---
DC PLAN VISITED WITH PATIENT. PATIENT LIVES WITH SON. INDEPENDENT ABLE TO PERFORM ADL'S. PATIENT HAS A WHEEL CHAIR. PLAN TO RETURN HOME.
--- NOTE | 2025-03-31 10:51 | NUR ---
TRANSFER TELEPHONE REPORT GIVEN TO CIRA DESAI.
--- NOTE | 2025-03-31 11:25 | NUR ---
PATIENT ARRIVED TO ROOM 419.
--- NOTE | 2025-03-31 11:25 | NUR ---
TRANSFER PT TRANSFERRED TO 419 VIA BED. TOLERATED WELL, NO DISTRESS NOTED.
--- NOTE | 2025-03-31 16:19 | HMCIMG ---
EXAM: CR Chest, 1 View. CLINICAL HISTORY: SEPSIS COMPARISON: 03/29/2025 FINDINGS: LUNGS: There is no active infiltrate or acute pulmonary abnormality. Essentially stable appearance of bilateral lung retana. PLEURAL SPACES: No evidence of pleural effusion or pneumothorax. MEDIASTINUM: The cardiac size is stable. Atherosclerotic aortic arch. BONES: No acute osseous abnormality. IMPRESSION: Essentially stable appearance of bilateral lung retana. No active lung infiltrates or pleural effusion. /[place]
--- NOTE | 2025-03-31 16:29 | PN ---
[facility] PROGRESS NOTE Date Patient Seen: Mar 31, 2025 Time of Visit: 16:29 Supervising Physician: Dr. Gutierrez Primary Care Physician: DR. POWERS;Mihcael SERNA Outpatient Specialists: [ ] Inpatient Consults: [ ] PROBLEM LIST: Severe sepsis secondary to acute complicated cystitis Metabolic encephalopathy secondary to sepsis Chronic kidney disease Stage II pressure injury right buttock POA Functional quadriplegia History of chronic Snider catheter INTERVAL HISTORY: Patient is seen at bedside with provider present. He remains afebrile today, currently on room air. Patient remains mildly encephalopathic. White count is within normal limits today. He was downgraded from ICU overnight and blood pressures remained stable off pressors. He remains on IV fluids, Snider catheter in place with straw yellow urine. No acute overnight events reported. PLAN: Continue IV fluid Continue IV antibiotics Follow culture results NPO patient pending swallow study. Venelex to pressure injury. REVIEW OF SYSTEMS: 12 point ROS reviewed with patient. Pertinent positives mentioned above. Otherwise negative. PHYSICAL EXAM: GENERAL: CHRONICALLY ILL APPEARING, quadriplegic HEENT: EOMI, Sclera non icteric, moist mucosa NECK: Supple, no JVD, trachea midline LUNGS: Clear breath sounds bilaterally. No wheezes HEART: Regular rate and rhythm. Normal S1 and S2, without murmurs ABD: Abdomen soft, nontender. Bowel sounds present EXT: No clubbing cyanosis or edema NEURO: CONFUSED Vital Signs (last 8hr) Date Time Temp Pulse Resp B/P (MAP) Pulse Ox O2 Delivery O2 Flow Rate FiO2 03/31/25 16:00 98.1 60 18 138/66 97 Room Air 21 03/31/25 12:00 98.6 65 16 111/58 95 Room Air 21 03/31/25 11:06 98.1 62 19 114/56 99 Room Air 03/31/25 09:00 75 17 115/62 97 Room Air LABS: Hematology Labs: Test 03/31/25 05:37 03/29/25 18:29 Range/Units White Blood Count 3.7 L 4.8-10.8 K/uL Red Blood Count 2.87 L 4.50-6.20 MIL/uL Hemoglobin 9.0 #L 14.0-18.0 g/dL Hematocrit 26.9 #L 42-54 % Mean Corpuscular Volume 93.7 79-99 fL Mean Corpuscular Hemoglobin 31.4 27.0-33.0 pg Mean Corpuscular Hemoglobin Concent 33.5 32.0-36.0 g/dL Red Cell Distribution Width 14.3 11.0-15.5 % Platelet Count 67 #L 130-400 K/uL Mean Platelet Volume 10.7 H 7.5-10.5 fL Immature Granulocyte % (Auto) 0.5 0-1 % Neutrophils (%) (Auto) 72.7 40.0-77.0 % Lymphocytes (%) (Auto) 16.3 L 21.0-51.0 % Monocytes (%) (Auto) 9.9 3.0-13.0 % Eosinophils (%) (Auto) 0.3 0.0-8.0 % Basophils (%) (Auto) 0.3 0.0-5.0 % Neutrophils # (Auto) 2.7 1.8-7.7 K/uL Lymphocytes # (Auto) 0.6 L 1.0-4.8 K/uL Monocytes # (Auto) 0.4 0.1-1.0 K/uL Eosinophils # (Auto) 0.01 0.00-0.70 K/uL Basophils # (Auto) 0.01 0.00-0.20 K/uL Absolute Immature Granulocyte (auto 0.02 0-1 K/uL Nucleated Red Blood Cells 0.0 0.0-0.19 % Platelet Morphology Comment See comments White Cell Morphology Comment See comments Chemistry Labs: Test 03/31/25 15:40 03/31/25 05:37 03/29/25 22:33 03/29/25 21:15 Range/Units Whole Blood Glucose 157 H 70-110 MG/DL Sodium Level 143 136-145 mmol/L Potassium Level 4.1 3.5-5.1 mmol/L Chloride Level 109 101-111 mmol/L Carbon Dioxide Level 26 21-32 mmol/L Blood Urea Nitrogen 22 H 7-18 mg/dL Creatinine 1.0 0.5-1.3 mg/dL Glomerular Filtration Rate Calc 78 >90 mL/min Random Glucose 73 # 70-105 mg/dL Lactic Acid Level 1.6 0.8-2.5 mmol/L Total Calcium 8.7 8.5-10.1 mg/dL Magnesium Level 1.30 L 1.80-2.40 mg/dL Total Bilirubin 0.9 # 0.2-1.0 mg/dL Aspartate Amino Transf (AST/SGOT) 34 10-37 U/L Alanine Aminotransferase (ALT/SGPT) 18 12-78 U/L Alkaline Phosphatase 48 L 50-136 U/L Total Protein 5.0 L 6.0-8.3 g/dL Albumin 2.2 L 3.5-5.0 g/dL Ammonia 38 H 11-32 umol/L Procalcitonin 2.12 H 0.05-0.5 ng/mL Test 03/29/25 18:29 Range/Units Hemoglobin A1c 6.9 H 4.0-6.0 % Estimated Average Glucose (eAG) 151 H 70-126 mg/dL DIAGNOSTICS / RADIOLOGY RESULTS: [ ] PLAN: Replace Snider catheter Zosyn 3.375 g IV every8 hours Obtain urine culture Blood culture x2 Start LR at 125 mL/hour Keep patient NPO Speech evaluation and treatment Obtain ammonia level Obtain CT brain without contrast stat PTOT evaluation and treatment FALL precautions Repeat lactic acid level and C7 All nephrotoxic drugs Monitor creatinine trend Accu-Cheks every 6 hours Insulin coverage per sliding scale Obtain hemoglobin A1c Lovenox for DVT prophylaxis Full code Disposition pending above NEURO: Minimize central acting medications as possible. Maintain fall precautions, adequate lighting during the day PULMONARY: Supplemental 02 as needed. Maintain aspiration precautions at all times CARDIOVASCULAR: Follow hemodynamics. Vital signs per facility protocol GI & NUTRITION: Continue with nutritional support. Continue stool softeners and laxatives as needed. KIDNEYS & ELECTROLYTES: Strict monitoring of intake, output and overall fluid balance. Avoid nephrotoxic medications to the extent possible. Medications to be dosed according to renal function. Monitor electrolytes and replace as needed ENDOCRINE: Maintain blood glucose between 100-180 at all times. Hypoglycemia protocol in place hemoglobin A1c INFECTIOUS DISEASE: Trend temperature, WBC and procalcitonin level Follow cultures, deescalate antibiotics as soon as possible. Panculture if new onset fever Zosyn 3.375 g IV every8 hours Blood culture x2 Obtain urine culture ONCOLOGY/HEMATOLOGY/COAGULATION: Monitor for s/s of bleeding Monitor hemoglobin, coagulation studies as needed SKIN: Pressure ulcer prevention per facility protocol Specialty mattress ORTHO/REHAB: Continue PT/OT Prophylaxis: Continue GI and DVT prophylaxis Code Status: Full Resuscitation Disposition: TBD Other: Case discussed with Riky España, and the above plan was formulated. MICHELLE SAENZ PAC Mar 31, 2025 16:29
[2025-04-01] VITALS (7 sets, daily range): BP systolic 103–129; BP diastolic 42–66; PULSE 59–72; RESP 16–24; TEMP 97.2–99.7; O2SAT 94–96
[2025-04-01 04:49] LABS: NUCLEATED RED BLOOD CELLS 0.0 % (0.0-0.19); PLATELET COUNT (AUTO) 69 K/uL (130-400); RED BLOOD CELL COUNT(AUTO) 2.80 MIL/uL (4.50-6.20); RED CELL DISTRIBUTION WIDTH 13.9 % (11.0-15.5); WHITE BLOOD COUNT (AUTO) 3.0 K/uL (4.8-10.8)
[2025-04-01 04:57] LABS: CREATININE 0.9 mg/dL (0.5-1.3); GLOMERULAR FILTR. RATE CALC 88.0 mL/min (>90); GLUCOSE,RANDOM 177.0 mg/dL (70-105); SODIUM SERUM 141.0 mmol/L (136-145); UREA NITROGEN, BLOOD 17.0 mg/dL (7-18)
[2025-04-01] MEDS ORDERED: PoTASSium chloRIDE 20MEQ ER 20 MEQ ERTAB PO PRN (05:30)
[2025-04-01 05:37] LABS: LYMPHOCYTES % (MANUAL) 14 % (22-44); MAN.DIFF COMMENT-IMPRESSION MANUAL DIFFERENTIAL; MONOCYTES % (MANUAL) 2 % (2-9); PLATELET MORPHOLOGY COMMENT DECREASED; SEGMENTED NEUTROPHILS % 84 % (40-70)
[2025-04-01] MEDS: MAGNESIUM 2GM PREMIX 50ML 50 ML IV PRN (09:20)
[2025-04-01] MEDS: PoTASSium chl 10% ELIXIR 20MEQ 20 MEQ/15 ML UDCUP PO PRN (09:32)
--- NOTE | 2025-04-01 11:51 | NUR ---
SPEECH NOTE: ROTARY SURFACE GRINDER coordinated with nurse Bosch. As per nurse, patient tolerating diet recommendations of regular solids, thin liquids with no s/s of aspiration. Please re-consult speech therapy services if any s/s of aspiration arise. All questions answered. Addendum: 04/01/[address] YAO FRANCO Amended: Links added.
[2025-04-01] MEDS: 1/2NS+20MEQ KCL/1000ML 1,000 ML IV SCH (12:53)
--- NOTE | 2025-04-01 14:21 | PN ---
[facility] PROGRESS NOTE Date Patient Seen: Apr 01, 2025 Time of Visit: 14:20 Supervising Physician: Dr. Riky Gutierrez Primary Care Physician: DR. PETER SERNA Outpatient Specialists: [ ] Inpatient Consults: NA PROBLEM LIST: Severe sepsis secondary to acute complicated cystitis CAUTI (+) Proteus Acute toxic metabolic encephalopathy secondary to sepsis Chronic kidney disease Stage II pressure injury right buttock, POA Functional quadriplegia History of chronic Snider catheter History of PE on Eliquis INTERVAL HISTORY: Patient assessed at bedside. Awake and alert, confused to place and time. Currently on room air. [employer] evaluated, on regular diet. Pending PT to work with patient. No family at bedside. Final urine culture positive for Proteus, pansensitive. PLAN: Change Snider catheter, has chronic catheter at home. Continue IV fluid Continue IV antibiotics Zosyn Follow culture results Venelex to pressure injury. Blood culture x2 PTOT evaluation and treatment FALL precautions All nephrotoxic drugs CM for disposition REVIEW OF SYSTEMS: 12 point ROS reviewed with patient. Pertinent positives mentioned above. Otherwise negative. PHYSICAL EXAM: GENERAL: CHRONICALLY ILL APPEARING, quadriplegic HEENT: EOMI, Sclera non icteric, moist mucosa NECK: Supple, no JVD, trachea midline LUNGS: Clear breath sounds bilaterally. No wheezes HEART: Regular rate and rhythm. Normal S1 and S2, without murmurs ABD: Abdomen soft, nontender. Bowel sounds present EXT: No clubbing cyanosis or edema NEURO: CONFUSED Vital Signs (last 8hr) Date Time Temp Pulse Resp B/P (MAP) Pulse Ox O2 Delivery O2 Flow Rate FiO2 04/01/25 11:38 98.2 59 17 103/56 95 Room Air 04/01/25 08:00 98.8 63 17 128/63 95 Room Air LABS: Hematology Labs: Test 04/01/25 04:37 03/31/25 05:37 Range/Units White Blood Count 3.0 L 4.8-10.8 K/uL Red Blood Count 2.80 L 4.50-6.20 MIL/uL Hemoglobin 8.8 L 14.0-18.0 g/dL Hematocrit 25.5 L 42-54 % Mean Corpuscular Volume 91.1 79-99 fL Mean Corpuscular Hemoglobin 31.4 27.0-33.0 pg Mean Corpuscular Hemoglobin Concent 34.5 32.0-36.0 g/dL Red Cell Distribution Width 13.9 11.0-15.5 % Platelet Count 69 L 130-400 K/uL Mean Platelet Volume 9.5 7.5-10.5 fL Segmented Neutrophils % 84 H 40-70 % Lymphocytes % (Manual) 14 L 22-44 % Monocytes % (Manual) 2 2-9 % Nucleated Red Blood Cells 0.0 0.0-0.19 % Differential Comment MANUAL DIFFERENTIAL White Cell Morphology Comment Platelet Morphology Comment DECREASED Red Blood Cell Morphology HYPOCHROM CELLS 1+ Immature Granulocyte % (Auto) 0.5 0-1 % Neutrophils (%) (Auto) 72.7 40.0-77.0 % Lymphocytes (%) (Auto) 16.3 L 21.0-51.0 % Monocytes (%) (Auto) 9.9 3.0-13.0 % Eosinophils (%) (Auto) 0.3 0.0-8.0 % Basophils (%) (Auto) 0.3 0.0-5.0 % Neutrophils # (Auto) 2.7 1.8-7.7 K/uL Lymphocytes # (Auto) 0.6 L 1.0-4.8 K/uL Monocytes # (Auto) 0.4 0.1-1.0 K/uL Eosinophils # (Auto) 0.01 0.00-0.70 K/uL Basophils # (Auto) 0.01 0.00-0.20 K/uL Absolute Immature Granulocyte (auto 0.02 0-1 K/uL Chemistry Labs: Test 04/01/25 11:08 04/01/25 04:37 03/31/25 05:37 Range/Units Whole Blood Glucose 173 H 70-110 MG/DL Sodium Level 141 136-145 mmol/L Potassium Level 2.6 *L 3.5-5.1 mmol/L Chloride Level 105 101-111 mmol/L Carbon Dioxide Level 28 21-32 mmol/L Blood Urea Nitrogen 17 7-18 mg/dL Creatinine 0.9 0.5-1.3 mg/dL Glomerular Filtration Rate Calc 88 >90 mL/min Random Glucose 177 #H 70-105 mg/dL Total Calcium 8.1 L 8.5-10.1 mg/dL Lactic Acid Level 1.6 0.8-2.5 mmol/L Magnesium Level 1.30 L 1.80-2.40 mg/dL Total Bilirubin 0.9 # 0.2-1.0 mg/dL Aspartate Amino Transf (AST/SGOT) 34 10-37 U/L Alanine Aminotransferase (ALT/SGPT) 18 12-78 U/L Alkaline Phosphatase 48 L 50-136 U/L Total Protein 5.0 L 6.0-8.3 g/dL Albumin 2.2 L 3.5-5.0 g/dL DIAGNOSTICS / RADIOLOGY RESULTS: [ ] PLAN: NEURO: Minimize central acting medications as possible. Maintain fall precautions, adequate lighting during the day PULMONARY: Supplemental 02 as needed. Maintain aspiration precautions at all times CARDIOVASCULAR: Follow hemodynamics. Vital signs per facility protocol GI & NUTRITION: Continue with nutritional support. Continue stool softeners and laxatives as needed. KIDNEYS & ELECTROLYTES: Strict monitoring of intake, output and overall fluid balance. Avoid nephrotoxic medications to the extent possible. Medications to be dosed according to renal function. Monitor electrolytes and replace as needed ENDOCRINE: Maintain blood glucose between 100-180 at all times. Hypoglycemia protocol in place hemoglobin A1c INFECTIOUS DISEASE: Trend temperature, WBC and procalcitonin level Follow cultures, deescalate antibiotics as soon as possible. Panculture if new onset fever Zosyn 3.375 g IV every8 hours Blood culture x2 Obtain urine culture ONCOLOGY/HEMATOLOGY/COAGULATION: Monitor for s/s of bleeding Monitor hemoglobin, coagulation studies as needed SKIN: Pressure ulcer prevention per facility protocol Specialty mattress ORTHO/REHAB: Continue PT/OT Prophylaxis: Continue GI and DVT prophylaxis Code Status: Full Resuscitation Disposition: FEROZ HOUSER Apr 01, 2025 14:21
[2025-04-02] VITALS (7 sets, daily range): BP systolic 116–143; BP diastolic 61–75; PULSE 62–72; RESP 16–18; TEMP 97.6–98.4; O2SAT 97
[2025-04-02 04:09] LABS: NUCLEATED RED BLOOD CELLS 0.0 % (0.0-0.19); PLATELET COUNT (AUTO) 78.0 K/uL (130-400); RED BLOOD CELL COUNT(AUTO) 2.96 MIL/uL (4.50-6.20); RED CELL DISTRIBUTION WIDTH 14.1 % (11.0-15.5); WHITE BLOOD COUNT (AUTO) 3.8 K/uL (4.8-10.8)
[2025-04-02 04:25] LABS: ASPARTATE AMINOTRANSFERASE 18.0 U/L (10-37); CREATININE 0.9 mg/dL (0.5-1.3); GLOMERULAR FILTR. RATE CALC 88.0 mL/min (>90); GLUCOSE,RANDOM 134.0 mg/dL (70-105); SODIUM SERUM 140.0 mmol/L (136-145); TOTAL PROTEIN, SERUM 5.1 g/dL (6.0-8.3); UREA NITROGEN, BLOOD 14.0 mg/dL (7-18)
[2025-04-02] MEDS: PoTASSium chloRIDE 10MEQ SR 10 MEQ/TAB TAB.SR.24H PO PRN (04:29)
[2025-04-02] MEDS: FERROUS SULFATE 325 MG TABLET.DR PO SCH (08:12)
--- NOTE | 2025-04-02 08:41 | NUR ---
Snider Cath Snider catheter changed in ER on 03/30/25, 18F, by Travis Reese RN.
--- NOTE | 2025-04-02 17:01 | DS ---
[facility] DISCHARGE SUMMARY Date Patient Seen: Apr 02, 2025 Time of Visit: 17:01 Supervising Physician: Dr. Riky Gutierrez Primary Care Physician: DR. PETER SERNA Outpatient Specialists: [ ] Inpatient Consults: NA PROBLEM LIST: Severe sepsis secondary to acute complicated cystitis CAUTI (+) Proteus Acute toxic metabolic encephalopathy secondary to sepsis, back to baseline Chronic kidney disease Stage II pressure injury right buttock, POA Functional quadriplegia Dementia History of glioblastoma with craniotomy History of chronic Amor catheter due to BPH History of PE on Eliquis HPI (per admitting provider) PATIENT IS A 79-YEAR-OLD MALE WITH PAST MEDICAL HISTORY SIGNIFICANT FOR DIABETES TYPE 2, HYPERTENSION, HEMORRHAGIC STROKE, DEMENTIA, CHRONIC AMOR CATHETER, UNDERWENT CRANIOTOMY, BROUGHT TO THE EMERGENCY DEPARTMENT BY FAMILY MEMBER FOR EVALUATION OF NEW ONSET OF DYSURIA, TACHYCARDIA FEVER, AND ALTERATION OF MENTAL STATUS THAT STARTED YESTERDAY. PER SON-IN-LAW AT BEDSIDE, FOR THE PAST24 HOURS, PATIENT IS BECOMING INCREASINGLY CONFUSED, HAS BEEN FEBRILE, AND TACHYCARDIC. TODAY, EMS WAS CALLED AT THE PATIENT'S RESIDENCE AND WAS TAKEN TO THE EMERGENCY DEPARTMENT FOR FURTHER EVALUATION AND TREATMENT. PATIENT WAS ASSESSED AT BEDSIDE, CONFUSED, AND UNABLE TO PROVIDE FURTHER HISTORY. THE WORKUP IN THE EMERGENCY DEPARTMENT SHOWS A TEMPERATURE OF 100.2, HEART RATE OF 126, BUN OF 38, CREATININE 1.5, GLUCOSE OF 296, LACTIC ACID OF 4.1, WBC OF 14.6, UA SHOWS UTI. THE EMERGENCY DEPARTMENT, PATIENT RECEIVED ZOSYN 3.375 G IV, ACETAMINOPHEN 1000 MG P.O., NS1 L BOLUS. PATIENT WILL BE ADMITTED TO [facility] FOR CLOSE MONITORING. HOSPITAL COURSE: Patient was admitted due to sepsis secondary to complicated cystitis with urine culture positive for proteus, pansensitive. Patient mental status has improved. Today, patient is awake and alert, able to follow commands and voice needs. Currently on room air. Per son at bedside, patient is back to baseline. PT recommended home with home PT, advised patient to follow up with PCP for outpatient PT, verbalized understanding. Amor catheter was changed on admission. Son states that Dr. Horan from [facility] placed it about 3 weeks ago. RX for Levaquin sent to pharmacy. Stable for discharge. New Medications: Levofloxacin (Levaquin 750Mg Tabs) 750 Mg Tablet 750 MG PO DAILY for 3 Days, #3 TAB Continued Medications: Apixaban (Eliquis) 5 Mg Tablet 1 TAB PO BID for 30 Days, #60 TAB 0 Refills Buspirone HCl (Buspirone HCl) 5 Mg Tablet 5 MG PO BID, TAB Dexamethasone (Dexamethasone) 0.5 Mg Tablet 4 MG PO DAILY, TAB Famotidine (Famotidine) 20 Mg Tablet 20 MG PO HS for 90 Days, TAB Ferrous Sulfate (Ferrous Sulfate) 325 Mg (65 Mg Iron) Ectab 325 MG PO DAILY, TAB.EC Finasteride (Proscar) 5 Mg Tablet 1 TAB PO DAILY for 30 Days, #30 TAB 0 Refills Hydroxyzine HCl (Hydroxyzine HCl) 25 Mg Tablet 25 MG PO Q6HPRN PRN for IF SBP GREATER THAN 160, TAB Levetiracetam (Levetiracetam) 500 Mg Tab.er.24h 500 MG PO BID, TAB Metformin HCl (Metformin HCl) 1,000 Mg Tablet 1000 MG PO BID, TAB Pravastatin Sodium (Pravastatin Sodium) 40 Mg Tablet 40 MG PO DAILY, TAB PHYSICAL EXAM: GENERAL: awake and alert, quadriplegic HEENT: EOMI, Sclera non icteric, moist mucosa NECK: Supple, no JVD, trachea midline LUNGS: Clear breath sounds bilaterally. No wheezes HEART: Regular rate and rhythm. Normal S1 and S2, without murmurs ABD: Abdomen soft, nontender. Bowel sounds present EXT: No clubbing cyanosis or edema NEURO: awake and alert FOLLOW-UP: Follow-up with PCP in 2-3 days RECOMMENDATIONS: See Discharge Instructions This case was seen and discussed with my supervising physician. More than 30 minutes spent on discharge process, including evaluation of the patient, discussion with nursing staff, medication reconciliation and follow-up appointments FEROZ ECHEVARRIA Apr 02, 2025 17:01
--- NOTE | 2025-04-02 17:30 | NUR ---
DISCHARGE ORDERS FOR PATIENT TO BE DISCHARGED HOME OBTAINED. DISCHARGE INSTRUCTIONS AND DOCUMENTATION GIVEN TO PATIENT'S SON AT BEDSIDE. VOICED UNDERSTANDING. IV DISCONTINUED BY IRWIN GANDHI PRIOR TO DISCHARGE. CATHETER INTACT, NO S/S OF INFECTION NOTED TO SITE. PATIENT TOLERATED WELL. RX SENT TO PHARMACY OF CHOICE. SON AWARE. BANDS REMOVED. PENDING DISCHARGE. Addendum: 04/02/25 at 1732 by YARITZA RODRIGUEZ LVN LVN PENDING TRANSPORTATION.
== END 2025-04-02 20:15 | disposition home or self-care (01) | DRG 698 ==
LOC: EDH 17:50 → EDHIP 22:00 → 2CH 03-30 03:33 → 4CH 03-31 11:35
PROVIDERS: ADMIT Internal Medicine Pulmonary Disease; ATTEND Internal Medicine Pulmonary Disease
DX: T83.518A Infection and inflammatory reaction due to other urinary catheter, initial encounter (principal); A41.9 Sepsis, unspecified organism; G92.8 Other toxic encephalopathy; R53.2 Functional quadriplegia; R65.20 Severe sepsis without septic shock; L89.312 Pressure ulcer of right buttock, stage 2; E11.22 Type 2 diabetes mellitus with diabetic chronic kidney disease; F03.90 Unspecified dementia, unspecified severity, without behavioral disturbance, psychotic disturbance, mood disturbance, and anxiety; B96.4 Proteus (mirabilis) (morganii) as the cause of diseases classified elsewhere; N30.00 Acute cystitis without hematuria; Z79.01 Long term (current) use of anticoagulants; I12.9 Hypertensive chronic kidney disease with stage 1 through stage 4 chronic kidney disease, or unspecified chronic kidney disease; N18.31 Chronic kidney disease, stage 3a; Y84.6 Urinary catheterization as the cause of abnormal reaction of the patient, or of later complication, without mention of misadventure at the time of the procedure; N40.0 Benign prostatic hyperplasia without lower urinary tract symptoms; Z86.73 Personal history of transient ischemic attack (TIA), and cerebral infarction without residual deficits; Z86.711 Personal history of pulmonary embolism; Z85.841 Personal history of malignant neoplasm of brain; Z79.84 Long term (current) use of oral hypoglycemic drugs
CPT/HCPCS: 36415; 36600; 70450; 71045; 80048; 80053; 81001; 82140; 82803; 82948; 83036; 83605; 83735; 84132; 84145; 85025; 85027; 87086; 87186; 92610; 99285; G0378; J1650; J1815; J2543; J3475; J3480; J3490; J7120; J8540; J1308